=== PATIENT | female | born 1975 | race African-American/Black ===

== ENCOUNTER 2016-07-16 13:05 | Inpatient (IN) ==
[2016-07-16] MEDS ORDERED: MORPHINE 2 MG/1 ML SYRINGE IV STA (14:50)
[2016-07-16] MEDS ORDERED: MORPHINE 2 MG/1 ML SYRINGE ONE (15:11)
[2016-07-16 15:14] LABS: Basophils % 0.2 % (0.0-0.8); Eosinophils # 0.1 10*3/uL (0.0-0.87); Eosinophils % 1.1 % (0.00-10.9); Hematocrit 28.5 VOL% (35.7-47.0); Hemoglobin 8.2 GM/DL (12.0-16.0); Immature Granulocytes % 0.6 %; Immature Granulocytes Absolute 0.06 #; Lymphocytes # 1.7 10*3/uL (1.4-4.0); Lymphocytes % 15.8 % (21.3-54.2); Mean Corpuscular HGB Conc 28.8 GM/DL (32-36); Mean Corpuscular Hemoglobin 19 PG (27-34); Mean Corpuscular Volume 64.3 FL (87-102); Mean Platelet Volume 8.4 FL (9.6-12.0); Monocytes # 0.6 10*3/uL (0.11-0.8); Monocytes % 5.7 % (1.7-12.7); Neutrophils # 8.1 10*3/uL (1.4-7.4); Neutrophils % 76.6 % (38.7-73.9); Platelet Count 435 T/CUMM (130-400); Red Blood Count 4.43 MC/CUMM (3.8-5.5); Red Cell Distribution Width 20.5 % (9.3-17.3); White Blood Count 10.6 T/CUMM (4-12)
[2016-07-16] MEDS ORDERED: HYDROmorphone 2 MG/1 ML VIAL IV PRN (15:32)
[2016-07-16] MEDS ORDERED: GLUCAGON 1 MG VIAL IM PRN (15:32)
[2016-07-16] MEDS ORDERED: BISACODYL 5 MG TABLET PO PRN (15:32)
[2016-07-16] MEDS ORDERED: ONDANSETRON 4 MG/2 ML VIAL IV PRN (15:32)
[2016-07-16] MEDS ORDERED: DEXTROSE 50% 25 GM/50 ML VIAL IV PRN (15:32)
[2016-07-16] MEDS ORDERED: ALUMINUM/MAGNES/SIMETH MAX STR 30 ML UDCUP PO PRN (15:32)
[2016-07-16] MEDS ORDERED: ACETAMINOPHEN 325 MG TABLET PO PRN (15:32)
[2016-07-16 15:34] LABS: Calcium 8.8 MG/DL (8.5-10.1); Osmolality,Calculated 276.4 MOS/KG (273-304); Potassium 3.6 MMOL/L (3.5-5.1)
[2016-07-16] MEDS ORDERED: ceFAZolin 2,000 MG in PREMIX 1 EACH IV ONE (15:45)
[2016-07-16] MEDS ORDERED: ALBUTEROL 2.5 MG/3 ML NEB RESP TX PRN (15:45)
--- NOTE | 2016-07-16 15:51 | General Surg History&Physical ---
Assessment and Plan - Time spent with patient Time spent with patient: Less than 30 minutes (1) Breast abscess of female Status: Acute Assessment and plan: Impression: Right breast abscess recurrent Plan: Surgical debridement and drainage of abscess right breast IV fluids and IV antibiotics Current Visit: Yes History of Present Illness Chief complaint: Abscess right breast History of present illness: Ms. Akers is a 40 year old female -[place] who has had a history of the right breast abscess drained in 2014. Had some flares in the past but never required any additional drainage. Came into the emergency room on the with a new area developing that was tender. She is started on some p.o. antibiotics and sent out and then no appointment was made for her follow-up. She came in today with a larger abscess with cellulitis around the breast with a area beginning to point in the very center of the areola. We will plan on taken to surgery this afternoon but she had eaten at 1230 some coke and chips at this time. We will go ahead and admit her on some IV antibiotics and try to taken to surgery tomorrow get this drained. Home Medications Medication Instructions Recorded Confirmed Type Albuterol Inhaler [Proventil 2 puff INH Q4H PRN #1 inhaler 05/07/15 07/16/16 Rx Inhaler] amLODIPine [Norvasc] 10 mg PO QPM 05/01/16 07/16/16 History Clindamycin Cap [Cleocin Cap] 300 mg PO Q8HR #21 capsule 07/11/16 07/16/16 Rx Allergies Allergy/AdvReac Type Severity Reaction Status Date / Time No Known Allergies Allergy Verified 07/16/16 13:12 Medical,Surgical,& Family Hx - Medical History Cardio: History of: Hypertension Neurology: History of: Migraine Respiratory: History of: Asthma (childhood asthma), Bronchitis Hematology: History of: Anemia (etiology unknown. Has had to have transfusions in the past.) Reproductive: History of: Ovarian Cysts (left) - Surgical History Reproductive Surgeries: Surgical HX of;: Breast Surgery (2015 right), Hysterectomy - Family History Family History: Reports;: Family Hypertension - Social History Smoking Status: Smoker, status unknown Frequency of Alcohol Use: None Type of Drug Use: None Exam - Constitutional Vitals: Period Temp Pulse Resp BP Sys/Randle Pulse Ox Last 24 Hr 98.2 F-98.2 F 82-100 16-20 164-179/92-115 100 General appearance: mild distress - Head Head exam: Present: normal inspection - ENT ENT exam: Present: normal exam - Neck Neck exam: Present: normal inspection - Respiratory Respiratory exam: Present: clear to auscultation bilaterally, rales - Cardiovascular Cardiovascular exam: Present: RRR - GI/Abdominal GI/Abdominal exam: Present: normal bowel sounds, soft. Absent: tenderness - Extremities Exam Extremities exam: Present: normal inspection - Back Exam Back exam: Present: normal inspection - Neurological Exam Neurological exam: Present: alert, oriented X3, CN II-XII intact - Skin Skin exam: Present: normal color, warm, erythema (About the areola of the right breast), other (Large indurated area on the 12 o'clock position of the right breast with a raised pointing area in the middle of the areola) 12 point system: reviewed and no additional remarkable complaints except as stated Quality Measures - VTE Contraindication to Pharmacological VTE Prophylaxis: High Risk of Bleeding Results - Labs CBC & BMP: 07/16/16 15:03 07/16/16 15:03 Lab Results: I have reviewed the past 24 hour labs
--- NOTE | 2016-07-16 16:15 | Emergency Department Note ---
Temo Mena Brooke, am scribing for, and in the presence of, Helen Nielsen DO 14:56. IGia Whitney, DO, personally performed the services described in this documentation, ascribed by Tiffany Plascencia in my presence, and it is both accurate and complete 611 . Arrival - Arrival Chief Complaint: Abscess Stated Complaint: right breast has a knot ED Nursing Triage Note: c/o having abscess on the right breast since sun., states she was evaluated here and told to come back if not better, + temp with the highest being 101.0 last evening., states she feels the abscess has gotten bigger and more painful Mode of Arrival: Ambulatory Limitations: No Limitations Source: Patient, RN Notes Reviewed Time Seen by Provider: 07/16/16 14:26 - History of Present Illness HPI Narrative: Patient is a 40 year old female who presents to the ED with c/o abscess to right breast x 8 days. Patient says she had a previous breast abscess in 2010 that was surgically drained. She hasn't had trouble until last sunday, she saw a doctor but was told it was not "big enough" to I&D. Patient was given antibiotics(clindamycin) and was told to come back if the abscess did not get any better. She says the abscess is increasingly very painful and the redness around her breast is new. She reports it is bigger than previous and has been having fevers of 101. She denies any drainage to the abscess including the white head or nipple drainage. She says she was "bathing" and some of the skin come off. She denies having any abdominal pain or vomiting. Patient has PMHx of HTN and takes Norvasc 5mg. She has eaten some "chips" around 1200 today. Onset (ago): day(s) (8) Date of Last Menstrual Period: hyst Allergies/Adverse Reactions: Allergies Allergy/AdvReac Type Severity Reaction Status Date / Time No Known Allergies Allergy Verified 07/16/16 13:12 Home Medications: Home Medications Medication Instructions Recorded Confirmed Type Albuterol Inhaler [Proventil 2 puff INH Q4H PRN #1 inhaler 05/07/15 07/16/16 Rx Inhaler] amLODIPine [Norvasc] 10 mg PO QPM 05/01/16 07/16/16 History Clindamycin Cap [Cleocin Cap] 300 mg PO Q8HR #21 capsule 07/11/16 07/16/16 Rx Review of System - Review of System 12 point system: reviewed and no additional remarkable complaints except as stated - Review of System Constitutional: Present: fever Respiratory: Absent: respiratory distress Gastrointestinal: Absent: abdominal pain, vomiting Skin: Present: other (abscess right breast). Absent: rash Medical,Surgical,& Family Hx - Medical History Cardio: History of: Hypertension Neurology: History of: Migraine Respiratory: History of: Asthma (childhood asthma), Bronchitis Hematology: History of: Anemia (etiology unknown. Has had to have transfusions in the past.) Reproductive: History of: Ovarian Cysts (left) - Surgical History Reproductive Surgeries: Surgical HX of;: Breast Surgery (2015 right), Hysterectomy - Family History Family History: Reports;: Family Hypertension - Social History Smoking Status: Smoker, status unknown Frequency of Alcohol Use: None Type of Drug Use: None Exam Vital Signs: Vital Signs Temperature 98.2 F 07/16/16 13:40 Pulse Rate 82 07/16/16 15:05 Respiratory Rate 20 07/16/16 15:05 Blood Pressure 164/92 07/16/16 15:05 O2 Sat by Pulse Oximetry 100 07/16/16 13:07 - General General appearance: alert, in no apparent distress - Head Head exam: Present: atraumatic, normocephalic - Eye Eye exam: Present: normal appearance, PERRL, EOMI - ENT ENT exam: Present: normal exam - Neck Neck exam: Present: normal inspection - Chest Chest inspection: Present: normal inspection, symmetric chest wall rise - Respiratory Respiratory exam: Present: normal lung sounds bilaterally - Cardiovascular Cardiovascular exam: Present: regular rate, normal rhythm, normal heart sounds - Abdominal Exam Abdominal exam: Present: soft. Absent: distention, tenderness - Extremities Exam Extremities exam: Present: normal inspection - Back Exam Back exam: Present: normal inspection - Neurological Exam Neurological exam: Present: alert, oriented X3 - Psychiatric Psychiatric exam: Present: normal affect, normal mood - Skin Skin exam: Present: warm, dry, intact, other (3x5cm abscess to right breast that is sub-areolar that has induration and fluctuance with surrounding cellulitis) Course Course Narrative: very large worsening abscess of right breast with new cellulitis. Consulted general surgery for surgical washout. They will admit. labs obtained. pain medication given. - Consultations Consultation #1: DR. Hamm- general surgery Results - Labs CBC & BMP: 07/16/16 15:03 07/16/16 15:03 Lab Results: I have reviewed the patients labs Labs: Laboratory Tests 07/16/16 15:03 WBC 10.6 RBC 4.43 Hgb 8.2 L Hct 28.5 L MCV 64.3 L MCH 19 L MCHC 28.8 L RDW 20.5 H Plt Count 435 H MPV 8.4 L Neut % (Auto) 76.6 H Lymph % (Auto) 15.8 L [place] % (Auto) 5.7 Eos % (Auto) 1.1 Baso % (Auto) 0.2 Neut # (Auto) 8.1 H Lymph # (Auto) 1.7 [place] # (Auto) 0.6 Eos # (Auto) 0.1 Baso # (Auto) 0.0 Immature Gran % 0.6 Nucleated RBC % 0.0 Immature Gran # 0.06 Nucleated RBCs # 0.00 Disposition Clinical Impression: Breast abscess of female, Cellulitis of female breast Case discussed with: patient Disposition: Still a Patient Condition: Stable
--- NOTE | 2016-07-16 16:34 | XRay Report ---
Exam: XR chest 1V portable Indication: Preop breast abscess Comparison study: 05/01/2016 radiograph Findings: Cardiac silhouette is mildly enlarged, similar to prior. Mediastinal contours are similar to prior and within normal limits. There is no focal consolidation, pneumothorax or pleural effusion identified. Impression: No acute cardiopulmonary process. PROCEDURE INTERPRETED AT [facility] DEPARTMENT OF RADIOLOGY Final Report Signed by: Kaden Sparks
[2016-07-16] MEDS: INSULIN REGULAR 100 UNIT/ML SUBCUT SCH ×2 (17:26→20:41)
[2016-07-16] MEDS: metroNIDAZOLE INJ 500 MG in PREMIX 1 EACH IV SCH ×2 (17:34→23:35)
[2016-07-16] MEDS: SODIUM CHLORIDE 0.45% 1,000 ML IV SCH (17:34)
[2016-07-16] MEDS: PIPERACILLIN/TAZOBACTAM 3,375 MG in SODIUM CHLORIDE 0.9% 100 ML IV SCH (18:54)
[2016-07-16] MEDS: amLODIPine 5 MG TABLET PO SCH (18:56)
[2016-07-16] MEDS: DOCUSATE SODIUM 100 MG CAPSULE PO SCH (21:00)
[2016-07-17] MEDS: SODIUM CHLORIDE 0.45% 1,000 ML IV SCH ×3 (00:10→16:01)
[2016-07-17] MEDS: PIPERACILLIN/TAZOBACTAM 3,375 MG in SODIUM CHLORIDE 0.9% 100 ML IV SCH ×3 (02:15→17:45)
[2016-07-17 06:20] LABS: PT Patient Result 10.9 SECS; Partial Thromboplastin Time 28.5 SECS (0-40)
[2016-07-17 06:40] LABS: Alanine Aminotransferase 14 U/L (13-56); Albumin 3.1 G/DL (3.4-5.0); Alkaline Phosphatase 56 U/L (45-117); Aspartate Amino Transferase 8 U/L (0-37); Bilirubin,Total < 0.39 MG/DL (0.2-1.0); Blood Urea Nitrogen 9 MG/DL (7-18); Calcium 8.5 MG/DL (8.5-10.1); Glucose 92 MG/DL (74-106); Osmolality,Calculated 277.4 MOS/KG (273-304); Potassium 3.6 MMOL/L (3.5-5.1); Sodium 140 MMOL/L (136-145)
[2016-07-17 07:05] LABS: Basophils % 0.4 % (0.0-0.8); Eosinophils # 0.2 10*3/uL (0.0-0.87); Eosinophils % 1.4 % (0.00-10.9); Hematocrit 27.1 VOL% (35.7-47.0); Hemoglobin 7.8 GM/DL (12.0-16.0); Immature Granulocytes % 0.7 %; Immature Granulocytes Absolute 0.08 #; Lymphocytes # 2.6 10*3/uL (1.4-4.0); Lymphocytes % 23.1 % (21.3-54.2); Mean Corpuscular HGB Conc 28.8 GM/DL (32-36); Mean Corpuscular Hemoglobin 19 PG (27-34); Mean Corpuscular Volume 64.7 FL (87-102); Mean Platelet Volume 8.5 FL (9.6-12.0); Monocytes # 0.8 10*3/uL (0.11-0.8); Monocytes % 6.9 % (1.7-12.7); Neutrophils # 7.6 10*3/uL (1.4-7.4); Neutrophils % 67.5 % (38.7-73.9); Platelet Count 425 T/CUMM (130-400); Red Blood Count 4.19 MC/CUMM (3.8-5.5); Red Cell Distribution Width 20.5 % (9.3-17.3); White Blood Count 11.2 T/CUMM (4-12)
[2016-07-17 07:17] LABS: Hypochromasia 2+; Microcytosis 2+
[2016-07-17 07:18] LABS: Platelet Estimate Increased; Polychromasia Slight
[2016-07-17] MEDS: metroNIDAZOLE INJ 500 MG in PREMIX 1 EACH IV SCH ×2 (07:46→15:45)
[2016-07-17] MEDS: INSULIN REGULAR 100 UNIT/ML SUBCUT SCH ×4 (07:48→20:27)
--- NOTE | 2016-07-17 07:49 | EKG Report ---
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
[2016-07-17] MEDS ORDERED: ceFAZolin 2,000 MG in PREMIX 1 EACH IV ONE (08:00)
[2016-07-17] MEDS: PANTOPRAZOLE 40 MG TABLET PO SCH (08:06)
[2016-07-17] MEDS: DOCUSATE SODIUM 100 MG CAPSULE PO SCH ×2 (08:06→20:31)
[2016-07-17] MEDS ORDERED: BUPIVACAINE MPF 0.25% /EPI 30 ML VIAL ONE (08:45)
[2016-07-17] MEDS ORDERED: METHYLENE BLUE 10 ML VIAL IV ONE (09:00)
[2016-07-17] MEDS ORDERED: PROPOFOL 200 MG/20 ML VIAL IV ONE ×2 (09:03→10:30)
[2016-07-17] MEDS ORDERED: PHENYLEPHRINE 1 MG/10 ML SYRINGE IV ONE (09:03)
[2016-07-17] MEDS ORDERED: LIDOCAINE 2% 5 ML VIAL ONE (09:03)
--- NOTE | 2016-07-17 10:10 | Operative Note ---
Date of procedure: 07/17/16 Pre-op diagnosis: Recurrent abscess right breast Post-op diagnosis: same Procedure: Operative note: Preoperative diagnosis: Recurrent abscess of the right breast Postoperative diagnosis: Same Procedure: Mammary duct exploration with excisional debridement and drainage of abscess with lumpectomy of abscess cavity and ductal component Anesthesia was general with local Surgeon Dr. Hamm Brief history: 40-year-old -Turkish female comes in with a recurrent abscess of the right breast with a large ulcerated area on the areola just above the nipple. She was seen initially on the and put on some antibiotics did not think need to be drained at that time is gotten progressively worse to a large indurated mass of 7 cm x 7 cm about the areolar at this time. Elected to put her on some IV antibiotics bring her surgery at this time. Procedure: With patient in supine position prepped and draped in sterile fashion timeout and antibiotics completed approaches area of the right breast. Between the areolar border and the nipple was a ulcerated area about midway. I had considered possibility of trying to go around circumareolar to do this area but this abscess area that was ulcerated forced me to look at this as a spot for incision. I tried infiltrated with a local anesthetic ellipse this ulcerated area out entering the cavity with a large amount of purulent material present. Prior to this would take in the lacrimal probes and I entered to ducts and the nipple that entered the cavity itself. Once this thing was opened and the skin was removed and cultures of this aerobically and anaerobically were taken of the fluid that I had to extend this towards the nipple and then towards the areola border in order to get this where I could see what I was able to remove. There was a large necrotic ulcerated cavity in this area. I carefully explored this and carefully dissected out the duct from underneath the nipples where the lacrimal probes were. Once I dissected out then I took a knife and cautery and we excised the cavity that was present remove all the necrotic tissue in this area. This was some taken for culture and is most taken for pathology. Patient has not had a mammogram in couple years felt is important to get good biopsies of this area induced complete dissection of the necrotic cavity as much as I could. Once everything was completely removed and clean at this point that I washed irrigated with saline solution. And I used electrocauterization controlling the bleeding. I feel the need to keep this wound open at this time to get things under control so we have an open wound post debridement that is 3 x 2 x 2.5 cm. After irrigating again I packed this with a Dakin's wet fluff. Bulky dressings were applied and the patient was taken recovery room. Estimated blood loss 15 cc Sponge count correct 2 Drains none Complications none Condition stable satisfactory Anesthesia: GETA, local (0.25% Marcaine with epinephrine mixed [id number] 1% Xylocaine plain.) Surgeon / Physician: Aman Hamm Estimated blood loss: other (15 cc) Specimens: other (Tissue for pathology and cultures) Condition: stable Disposition: floor Results - Labs CBC & BMP: 07/17/16 04:55 07/17/16 04:55 Discharge Plan - Discharge Medications No Action Albuterol Inhaler [Proventil Inhaler] 2 puff INH Q4H PRN #1 inhaler PRN Reason: Shortness Of Breath/Wheezing amLODIPine [Norvasc] 10 mg PO QPM Clindamycin Cap [Cleocin Cap] 300 mg PO Q8HR #21 capsule - Follow Up or Referral - Forms/Instructions
[2016-07-17] MEDS ORDERED: CHLORHEXIDINE 4% SOLN 118 ML BOTTLE TOP ONE (10:15)
[2016-07-17] MEDS ORDERED: DESFLURANE 1 UNIT/15 MINUTE INH ONE (10:30)
[2016-07-17] MEDS ORDERED: MIDAZOLAM 2 MG/2 ML VIAL ONE (10:30)
[2016-07-17] MEDS ORDERED: fentaNYL 100 MCG/2 ML VIAL ONE (10:30)
--- NOTE | 2016-07-17 15:13 | Anesthesia Post-Op ---
Anesthesia Post OP - Post Ansesthetic Evaluation Patient seen in post op: Yes Resp: within normal limits CV: within normal limits Mental: within normal limits Temp: within normal limits [id number]: within normal limits Nausea and Vomiting: within normal limits Pain: within normal limits
[2016-07-17] MEDS: ceFAZolin 2,000 MG in PREMIX 1 EACH IV SCH (15:15)
[2016-07-17] MEDS: amLODIPine 5 MG TABLET PO SCH (18:13)
[2016-07-18] MEDS: ceFAZolin 2,000 MG in PREMIX 1 EACH IV SCH (00:05)
[2016-07-18] MEDS: SODIUM CHLORIDE 0.45% 1,000 ML IV SCH ×2 (00:38→09:03)
[2016-07-18] MEDS: metroNIDAZOLE INJ 500 MG in PREMIX 1 EACH IV SCH ×2 (00:38→08:57)
[2016-07-18] MEDS: PIPERACILLIN/TAZOBACTAM 3,375 MG in SODIUM CHLORIDE 0.9% 100 ML IV SCH ×2 (02:46→09:53)
[2016-07-18 06:30] LABS: Basophils % 0.3 % (0.0-0.8); Eosinophils # 0.1 10*3/uL (0.0-0.87); Eosinophils % 1.1 % (0.00-10.9); Hematocrit 27.8 VOL% (35.7-47.0); Hemoglobin 7.9 GM/DL (12.0-16.0); Immature Granulocytes % 0.3 %; Immature Granulocytes Absolute 0.03 #; Lymphocytes # 1.6 10*3/uL (1.4-4.0); Lymphocytes % 15.8 % (21.3-54.2); Mean Corpuscular HGB Conc 28.4 GM/DL (32-36); Mean Corpuscular Hemoglobin 18 PG (27-34); Mean Corpuscular Volume 64.1 FL (87-102); Mean Platelet Volume 8.6 FL (9.6-12.0); Monocytes # 0.6 10*3/uL (0.11-0.8); Monocytes % 6.1 % (1.7-12.7); Neutrophils % 76.4 % (38.7-73.9); Platelet Count 317 T/CUMM (130-400); Red Blood Count 4.34 MC/CUMM (3.8-5.5); Red Cell Distribution Width 20.2 % (9.3-17.3); White Blood Count 10.4 T/CUMM (4-12)
[2016-07-18 06:32] LABS: Calcium 9.1 MG/DL (8.5-10.1); Osmolality,Calculated 277.3 MOS/KG (273-304); Potassium 3.7 MMOL/L (3.5-5.1)
[2016-07-18 06:44] LABS: Hypochromasia 2+; Microcytosis 2+; Ovalocytes Slight; Platelet Estimate Normal; Target Cells Few
[2016-07-18 06:45] LABS: Polychromasia Slight
[2016-07-18] MEDS ORDERED: ENOXAPARIN 40 MG/0.4 ML SYRINGE SUBCUT SCH (08:00)
[2016-07-18] MEDS: INSULIN REGULAR 100 UNIT/ML SUBCUT SCH (08:13)
[2016-07-18] MEDS: DOCUSATE SODIUM 100 MG CAPSULE PO SCH (08:57)
[2016-07-18] MEDS: PANTOPRAZOLE 40 MG TABLET PO SCH (08:57)
--- NOTE | 2016-07-18 08:58 | Discharge Summary ---
Hospital Course - Hospital Course Hospital Course: 07/18/2016. Discharge summary This 40-year-old black female was admitted through the emergency room after reportedly 3-4 day history of increasing right wrist pain. This was associated with the mass, and she had a past medical history of prior right breast abscess. She had previously seen an outpatient position, who told her the area was "not large enough to drain." She was placed on antibiotics, and came to the emergency room when she developed fever up to 101, increased pain, and enlarging of the right breast mass. Dr. Maldonado was consulted, and felt the area did need I&D at this point. She was admitted, placed on IV antibiotics, and on 07/17/2016, she was taken to the operating room where incision and drainage of a large right breast abscess was performed. The area did extend subareolar and the entire affected duct was excised. Postoperatively she did quite well, with a moderate amount of pain and also complained of a postop headache although she denied nausea and vomiting. This morning however she is able to tolerate a regular diet, her headache has subsided, and she is only having a minimal amount of discomfort. The dressing changes not formally been performed, however the wound is clean and dry without active drainage. Gram stain at this point is negative for any visible organisms. There is minimal induration and no active bleeding. The patient has had prior abscesses drained in this area, and feels comfortable that she can manage the wound at home. She would like to be discharged home, so we will plan to discharge her at this time. We will cover her empirically on short course of Augmentin until the final cultures are available, we will add tramadol every 6 hours as needed for pain, and be sure that the wound care can be managed and tolerated by her before she is discharged. We will plan to continue all her previous home medications and follow her up in our office in 1-2 weeks unless there are problems sooner. Diagnosis - Discharge Diagnosis (1) Breast abscess of female Status: Acute Specialty Discharge - Follow Up or Referrals Follow up with: Aman Hmam MD [Physician] - 07/24/16 9:00 am (1-2 weeks with either Rose or Dr. Hamm; please bring insurance cards, medicine and photo id to your appointment) Discharge Plan - Discharge Data Disposition: Disch To Home/Self Care Condition at Discharge: Stable Discharge Diet: advance to your usual diet Activity: increase activity as tolerated Hygiene: may shower Weight Bearing at Discharge: full weight bearing Driving: no restrictions Contact your physician if you experience:: fever over 101, Redness or swelling, Nausea/Vomiting, Shortness of breath, Bleeding, pain uncontrolled by pain medications - Discharge Medications New Chlorhexidine 4% Soln [Hibiclens] 1 applic TOP BID #118 ml Sodium Hypochlorite 0.25% Irr [Dakins 1/2 Strength 0.25% Soln] 1 bottle TOP BID #1 ml Tramadol HCl [Tramadol Tab] 50 mg PO Q6H PRN #20 tablet PRN Reason: Pain Moderate To Severe (4-10) Amoxicillin/Clav Tab [Augmentin Tab] 500 mg PO Q8H #21 tablet Continue Albuterol Inhaler [Proventil Inhaler] 2 puff INH Q4H PRN #1 inhaler PRN Reason: Shortness Of Breath/Wheezing amLODIPine [Norvasc] 10 mg PO QPM Discontinued Clindamycin Cap [Cleocin Cap] 300 mg PO Q8HR #21 capsule - Follow Up or Referral Follow Up: Aman Hamm MD [Physician] - - Forms/Instructions Instructions: Breast Abscess Drainage (DC), Cellulitis (DC) Exam - Constitutional Vitals: Period Temp Pulse Resp BP Sys/Randle Pulse Ox Last 24 Hr 97 F-98.1 F 87-97 16-24 124-193/69-101 92-100 General appearance: no acute distress, morbidly obese - Respiratory Respiratory exam: Present: clear to auscultation bilaterally - Cardiovascular Cardiovascular exam: Present: regular rate and rhythm - GI/Abdominal GI/Abdominal exam: Present: hypoactive bowel sounds, soft - Extremities Exam Extremities exam: Present: normal inspection - Skin Skin exam: Present: other (Right breast with resolving erythema about the incision. There is very minimal induration. There is no active drainage or bleeding noted. She is appropriately tender postop.) Discharge Results Procedures and tests throughout hospitalization: Pending Orders 07/17/16 09:44 Anaerobic Culture Routine Wound Culture Routine 07/17/16 09:48 Tissue (Biopsy) Culture and GS Routine Labs on day of discharge: Labs from last 24 hours 07/18/16 07/18/16 07/18/16 07:04 05:44 05:44 WBC 10.4 RBC 4.34 Hgb 7.9 L Hct 27.8 L MCV 64.1 L MCH 18 L MCHC 28.4 L RDW 20.2 H Plt Count 317 D MPV 8.6 L Neut % (Auto) 76.4 H Lymph % (Auto) 15.8 L Stewart % (Auto) 6.1 Eos % (Auto) 1.1 Baso % (Auto) 0.3 Neut # (Auto) 8.0 H Lymph # (Auto) 1.6 Stewart # (Auto) 0.6 Eos # (Auto) 0.1 Baso # (Auto) 0.0 Immature Gran % 0.3 Nucleated RBC % 0.0 Immature Gran # 0.03 Nucleated RBCs # 0.00 Platelet Estimate Normal Polychromasia Slight Hypochromasia 2+ Microcytosis 2+ Target Cells Few Ovalocytes Slight Sodium 141 Potassium 3.7 Chloride 104 Carbon Dioxide 27 Anion Gap 13.7 BUN 4 L Creatinine 0.60 GFR Calculation 188 BUN/Creatinine Ratio 6.00 Glucose 104 POC Glucose 121 H Calculated Osmolality 277.3 Calcium 9.1 07/17/16 07/17/16 07/17/16 20:03 15:25 11:23 WBC RBC Hgb Hct MCV MCH MCHC RDW Plt Count MPV Neut % (Auto) Lymph % (Auto) Stewart % (Auto) Eos % (Auto) Baso % (Auto) Neut # (Auto) Lymph # (Auto) Stewart # (Auto) Eos # (Auto) Baso # (Auto) Immature Gran % Nucleated RBC % Immature Gran # Nucleated RBCs # Platelet Estimate Polychromasia Hypochromasia Microcytosis Target Cells Ovalocytes Sodium Potassium Chloride Carbon Dioxide Anion Gap BUN Creatinine GFR Calculation BUN/Creatinine Ratio Glucose POC Glucose 122 H 105 161 H Calculated Osmolality Calcium DS: Provider Date of admission: 07/16/16 15:32 Primary care physician: . No PCP Attending physician on admission: Aman Hamm MD Consults: 07/16/16 15:47 Consult to Anesthesiology [CONS] Routine Consulting Provider: Reason for Anesthesiology: Pre-op Clearance 07/17/16 10:18 Consult to Wound Care - [place] [CONS] Routine Reason for Wound Care: Wound Care Management Consult Comment: right breast wound/teach family Discharging clinician: Rose Patel CNP, R
[2016-07-18] MEDS ORDERED: SODIUM HYPOCHLORITE 0.25% IRRIG 473 ML BOTTLE TOP SCH (09:00)
[2016-07-18 11:33] VITALS: BP 164/83
--- NOTE | 2016-07-18 13:21 | Pathology Report from [facility] ---
[facility] ACCESSION # : [id number] PATIENT NAME : Bobbi Akers ORDERING DR : CALEB HESTER MD CLINICAL HX: RT breast abscess POST-OP DX: Same SPECIMEN INFO: RT breast tissue GROSS DESCRIPTION: Received in formalin labeled BOBBI AKERS & R BREAST TISSUE are five fragments of yellow pink debrided subcutaneous tissue and overlying dark rubin skin measuring 3.3 x 2.2 cm. Felt Hooker sections are submitted in one cassette. NOTE: Time in formalin is 10:15 a.m. and time out of formalin is 6:00 p.m. on July 17. DIAGNOSIS FOR BOBBI AKERS: SKIN & SUBCUTANEOUS TISSUE OF RIGHT BREAST, DEBRIDEMENT: Reactive skin with abscess contents and marked acute and chronic cellulitis. COLLECTED DATE: 07/17/2016 [facility] REPORT DATE: 07/18/2016 ELECTRONICALLY SIGNED BY: Montrell Mahmood M.D. 07/18/2016 - 10:18:15 MTDD
--- NOTE | 2016-07-21 08:15 | Physician Query Form ---
CLICK EDIT DOCUMENT TO SELECT QUERY ANSWER --> OK --> SIGN Anette Patel RN, CCDS Certified Clinical Active Directory Administrator W) [phone] (f) [phone] [email or web address] PROVIDERS: Make your selection(s) from the choices in EACH section by typing an "x" and enter comments in the comment section. Please use your independent medical judgment in providing your response. This request does not imply that any particular answer is desired or expected. 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 If applicable, please provide an associated diagnosis related to the abnormal BMI: BMI of 40 or greater: ( ) Overweight ( ) Obesity (x ) Morbid//Severe Obesity ( ) Obesity with Alveolar Hypoventilation ( ) Weight Gain ( ) BMI is not significant ( ) Other, please specify: ( ) Clinically unable to determine COMMENTS: PLEASE ALSO DOCUMENT RESPONSE IN PROGRESS NOTES AND/OR DISCHARGE SUMMARY Use of terms such as suspected, likely, or probable (associated with a specific diagnosis that is being evaluated, monitored, or treated as if it exists) are acceptable and can be restated in the discharge summary if not ruled out. MTDD
== END 2016-07-18 11:40 | disposition home or self-care (01) | DRG 584 ==
LOC: N.ED 13:05 → N.EDINP 15:32 → N.3E 16:43
PROVIDERS: ADMIT Specialist; ATTEND Specialist

== ENCOUNTER 2017-07-18 15:03 | Observation (INO) ==
[2017-07-18] MEDS ORDERED: MORPHINE 4 MG/1 ML VIAL IV STA (16:40)
[2017-07-18] MEDS ORDERED: ONDANSETRON 4 MG/2 ML VIAL IV STA (16:40)
[2017-07-18] MEDS ORDERED: ASPIRIN 325 MG TABLET PO STA (16:40)
[2017-07-18] MEDS ORDERED: NITROGLYCERIN 2% OINT 1 INCH/GM PACK TOP STA (16:40)
[2017-07-18] MEDS ORDERED: FUROSEMIDE 40 MG/4 ML VIAL IV STA (16:42)
[2017-07-18 16:59] LABS: Basophils % 0.2 % (0.0-0.8); Eosinophils # 0.1 10*3/uL (0.0-0.87); Eosinophils % 0.5 % (0.00-10.9); Hemoglobin 7.8 GM/DL (12.0-16.0); Immature Granulocytes % 0.3 %; Immature Granulocytes Absolute 0.03 #; Lymphocytes # 1.7 10*3/uL (1.4-4.0); Mean Corpuscular HGB Conc 27.9 GM/DL (32-36); Mean Corpuscular Hemoglobin 18 PG (27-34); Mean Corpuscular Volume 64.1 FL (87-102); Mean Platelet Volume 8.9 FL (9.6-12.0); Monocytes # 0.5 10*3/uL (0.11-0.8); Monocytes % 4.6 % (1.7-12.7); Neutrophils # 7.8 10*3/uL (1.4-7.4); Neutrophils % 77.4 % (38.7-73.9); Platelet Count 461 T/CUMM (130-400); Red Blood Count 4.37 MC/CUMM (3.8-5.5); Red Cell Distribution Width 22.4 % (9.3-17.3); White Blood Count 10.1 T/CUMM (4-12)
[2017-07-18 17:00] LABS: Calcium 8.7 MG/DL (8.5-10.1); Osmolality,Calculated 275.5 MOS/KG (273-304)
[2017-07-18 17:08] LABS: PT Patient Result 10.5 SECS
[2017-07-18 17:13] LABS: Alanine Aminotransferase 13 U/L (13-56); Albumin 3.2 G/DL (3.4-5.0); Alkaline Phosphatase 48 U/L (45-117); Aspartate Amino Transferase 12 U/L (0-37); Bilirubin,Total < 0.39 MG/DL (0.2-1.0); Blood Urea Nitrogen 10 MG/DL (7-18); Calcium 8.5 MG/DL (8.5-10.1); Glucose 90 MG/DL (74-106); Osmolality,Calculated 275.5 MOS/KG (273-304); Sodium 139 MMOL/L (136-145); Total Protein 7.2 G/DL (6.4-8.3)
[2017-07-18] MEDS ORDERED: ONDANSETRON 4 MG/2 ML VIAL IV PRN (18:10)
[2017-07-18] MEDS: amLODIPine 10 MG TABLET PO SCH (22:27)
[2017-07-19] MEDS ORDERED: MORPHINE 4 MG/1 ML VIAL IV PRN (05:09)
[2017-07-19 05:59] LABS: Basophils % 0.2 % (0.0-0.8); Eosinophils # 0.1 10*3/uL (0.0-0.87); Eosinophils % 1.2 % (0.00-10.9); Immature Granulocytes % 0.4 %; Immature Granulocytes Absolute 0.04 #; Lymphocytes % 20.2 % (21.3-54.2); Mean Corpuscular Hemoglobin 18 PG (27-34); Monocytes # 0.7 10*3/uL (0.11-0.8); Monocytes % 6.9 % (1.7-12.7); Neutrophils # 6.9 10*3/uL (1.4-7.4); Neutrophils % 71.1 % (38.7-73.9)
[2017-07-19 06:17] LABS: Calcium 8.3 MG/DL (8.5-10.1); Osmolality,Calculated 278.4 MOS/KG (273-304); Potassium 3.7 MMOL/L (3.5-5.1); Thyroid Stimulating Hormone 2.14 uIU/ml (0.358-3.74)
[2017-07-19] MEDS ORDERED: POTASSIUM CHLORIDE 20 MEQ TABLET PO PRN (06:24)
[2017-07-19 06:29] LABS: Hypochromasia 1+; Platelet Estimate Adequate
[2017-07-19 07:07] LABS: Sedimentation Rate-Westergren 32 MM/HR (0-20)
[2017-07-19 07:48] LABS: Folate 10.4 NG/ML (5.4-24.0); Vitamin B12 494 PG/ML (211-911)
[2017-07-19] MEDS: PANTOPRAZOLE 40 MG TABLET PO SCH (09:23)
[2017-07-19 09:54] LABS: Hemoglobin A1 (Alkaline) 97.2 % (96.5-98.5); Hemoglobin A2 (Alkaline) 2.8 % (1.5-3.5)
[2017-07-19 10:52] LABS: Hemoglobin 7.9 GM/DL (12.0-16.0); Red Blood Count 4.43 MC/CUMM (3.8-5.5); White Blood Count 9.1 T/CUMM (4-12)
[2017-07-19 10:53] LABS: Hematocrit 28.9 VOL% (35.7-47.0); Mean Corpuscular HGB Conc 27.3 GM/DL (32-36); Mean Corpuscular Volume 65.2 FL (87-102); Mean Platelet Volume 8.3 FL (9.6-12.0); Platelet Count 451 T/CUMM (130-400); Red Cell Distribution Width 22.7 % (9.3-17.3)
[2017-07-19 10:55] LABS: Apearance,Urine CLEAR (Clear); Bilirubin,Urine Negative (Negative); Blood, Urine Negative (Negative); Glucose,Urine (UA) Negative (Negative); Ketones,Urine Negative (Negative); Mucus,Urine Moderate /LPF (Occasional); Nitrite,Urine Negative (Negative); Protein,Urine Negative; RBC,Urine 3 /HPF (0-4); Squamous Epithelial Cell,Urine Occasional /HPF (0-10); Urine Color Yellow (Yellow); Urine Specific Gravity 1.021 (1.001-1.035); Urine Urobilinogen < 2.0 EU/DL (0.2-1.0)
[2017-07-19] MEDS ORDERED: SODIUM CHLORIDE 0.9% 1,000 ML IV PRN (11:25)
[2017-07-19] MEDS ORDERED: FUROSEMIDE 40 MG/4 ML VIAL IV ONE (11:25)
[2017-07-19] MEDS ORDERED: hydrALAZINE 20 MG/1 ML VIAL IV PRN (12:48)
[2017-07-19] MEDS: amLODIPine 10 MG TABLET PO SCH (20:40)
[2017-07-19 21:58] LABS: Hematocrit 30.8 VOL% (35.7-47.0); Hemoglobin 9.1 GM/DL (12.0-16.0)
[2017-07-20] MEDS ORDERED: ACETAMINOPHEN 325 MG TABLET ONE (01:04)
[2017-07-20] MEDS ORDERED: ACETAMINOPHEN 325 MG TABLET PO PRN (01:05)
[2017-07-20 05:08] LABS: Basophils % 0.3 % (0.0-0.8); Eosinophils # 0.1 10*3/uL (0.0-0.87); Eosinophils % 1.4 % (0.00-10.9); Hematocrit 32.5 VOL% (35.7-47.0); Hemoglobin 9.5 GM/DL (12.0-16.0); Immature Granulocytes % 0.3 %; Immature Granulocytes Absolute 0.03 #; Lymphocytes # 2.4 10*3/uL (1.4-4.0); Lymphocytes % 23.7 % (21.3-54.2); Mean Corpuscular HGB Conc 29.2 GM/DL (32-36); Mean Corpuscular Hemoglobin 19 PG (27-34); Mean Corpuscular Volume 66.2 FL (87-102); Mean Platelet Volume 8.6 FL (9.6-12.0); Monocytes # 0.8 10*3/uL (0.11-0.8); Monocytes % 7.6 % (1.7-12.7); Neutrophils # 6.6 10*3/uL (1.4-7.4); Neutrophils % 66.7 % (38.7-73.9); Platelet Count 464 T/CUMM (130-400); Red Blood Count 4.91 MC/CUMM (3.8-5.5); Red Cell Distribution Width 24.2 % (9.3-17.3); White Blood Count 9.9 T/CUMM (4-12)
[2017-07-20 05:28] LABS: Calcium 8.4 MG/DL (8.5-10.1); Osmolality,Calculated 273.7 MOS/KG (273-304); Potassium 3.6 MMOL/L (3.5-5.1)
[2017-07-20] MEDS: PANTOPRAZOLE 40 MG TABLET PO SCH (09:27)
[2017-07-20] MEDS ORDERED: LIDOCAINE 2% 5 ML VIAL ONE (11:17)
[2017-07-20] MEDS ORDERED: PROPOFOL 200 MG/20 ML VIAL IV ONE (11:17)
[2017-07-20] MEDS ORDERED: SUMAtriptan 6 MG/0.5 ML VIAL SUBCUT ONE (14:44)
[2017-07-20] MEDS ORDERED: TOPIRAMATE 25 MG TABLET PO SCH (15:00)
[2017-07-20 16:12] VITALS: BP 169/95
== END 2017-07-20 15:57 | disposition home or self-care (01) ==
LOC: N.ED 15:03 → N.EDINP 15:03 → SUATTDRO 17:13 → N.TELEN 21:19
PROVIDERS: ADMIT Internal Medicine; ATTEND Internal Medicine

== ENCOUNTER 2017-10-10 13:59 | Observation (INO) ==
[2017-10-10 16:35] LABS: Basophils % 0.3 % (0.0-0.8)
[2017-10-10 16:49] LABS: Calcium 8.4 MG/DL (8.5-10.1); Osmolality,Calculated 280.3 MOS/KG (273-304); Potassium 3.6 MMOL/L (3.5-5.1)
[2017-10-10 16:55] LABS: Eosinophils # 0.2 10*3/uL (0.0-0.87); Eosinophils % 1.7 % (0.00-10.9); Hematocrit 33.3 VOL% (35.7-47.0); Hemoglobin 9.2 GM/DL (12.0-16.0); Immature Granulocytes % 0.4 %; Immature Granulocytes Absolute 0.04 #; Lymphocytes # 2.2 10*3/uL (1.4-4.0); Lymphocytes % 20.5 % (21.3-54.2); Mean Corpuscular HGB Conc 27.6 GM/DL (32-36); Mean Corpuscular Hemoglobin 20 PG (27-34); Mean Platelet Volume 9.1 FL (9.6-12.0); Monocytes # 0.6 10*3/uL (0.11-0.8); Monocytes % 5.6 % (1.7-12.7); Neutrophils # 7.7 10*3/uL (1.4-7.4); Neutrophils % 71.5 % (38.7-73.9); Platelet Count 418 T/CUMM (130-400); Red Blood Count 4.69 MC/CUMM (3.8-5.5); Red Cell Distribution Width 21.1 % (9.3-17.3); White Blood Count 10.8 T/CUMM (4-12)
[2017-10-10 17:10] LABS: Hypochromasia 1+; Target Cells Few
[2017-10-10 17:11] LABS: Anisocytosis Slight; Platelet Estimate Adequate
[2017-10-10] MEDS ORDERED: ORPHENADRINE 60 MG/2 ML VIAL IV STA (17:19)
[2017-10-10] MEDS ORDERED: KETOROLAC 30 MG/1 ML VIAL IV STA (17:20)
[2017-10-10] MEDS ORDERED: DICLOFENAC POTASSIUM 50 MG TABLET PO PRN (19:19)
[2017-10-10] MEDS ORDERED: diphenhydrAMINE CAP 25 MG CAPSULE PO PRN (19:45)
[2017-10-10] MEDS ORDERED: traZODone 50 MG TABLET PO PRN (19:45)
[2017-10-10 20:31] LABS: Risk Ratio 2.22; T4 (Thyroxine) 7.1 UG/DL (4.7-13.3); Thyroid Stimulating Hormone 1.93 uIU/ml (0.358-3.74); VLDL CHOLESTEROL 8.2 MG/DL
[2017-10-11] MEDS: amLODIPine 10 MG TABLET PO SCH ×2 (00:28→20:35)
[2017-10-11] MEDS: HEPARIN 5,000 UNIT/1 ML VIAL SUBCUT SCH ×3 (00:28→20:34)
[2017-10-11] MEDS: DOCUSATE SODIUM 100 MG CAPSULE PO SCH ×3 (00:29→20:35)
[2017-10-11] MEDS: FLUTICASONE 50 MCG NASAL SPRAY 16 GM BOTTLE BOTH NARES SCH ×2 (00:29→20:37)
[2017-10-11 04:42] LABS: Basophils % 0.3 % (0.0-0.8); Eosinophils # 0.2 10*3/uL (0.0-0.87); Eosinophils % 1.6 % (0.00-10.9); Hemoglobin 8.7 GM/DL (12.0-16.0); Immature Granulocytes % 0.3 %; Immature Granulocytes Absolute 0.04 #; Lymphocytes # 2.9 10*3/uL (1.4-4.0); Lymphocytes % 22.9 % (21.3-54.2); Mean Corpuscular HGB Conc 28.1 GM/DL (32-36); Mean Corpuscular Hemoglobin 20 PG (27-34); Mean Corpuscular Volume 70.8 FL (87-102); Mean Platelet Volume 9.2 FL (9.6-12.0); Monocytes # 0.8 10*3/uL (0.11-0.8); Monocytes % 6.1 % (1.7-12.7); Neutrophils # 8.6 10*3/uL (1.4-7.4); Neutrophils % 68.8 % (38.7-73.9); Platelet Count 312 T/CUMM (130-400); Red Blood Count 4.38 MC/CUMM (3.8-5.5); Red Cell Distribution Width 20.9 % (9.3-17.3); White Blood Count 12.6 T/CUMM (4-12)
[2017-10-11 04:53] LABS: Hypochromasia 1+; Platelet Estimate Adequate
[2017-10-11 05:03] LABS: Albumin 3.1 G/DL (3.4-5.0); Bilirubin,Total 0.5 MG/DL (0.2-1.0); Calcium 8.5 MG/DL (8.5-10.1); Osmolality,Calculated 281.3 MOS/KG (273-304); Potassium 3.5 MMOL/L (3.5-5.1); Total Protein 7.4 G/DL (6.4-8.3)
[2017-10-11] MEDS: LISINOPRIL 10 MG TABLET PO SCH (11:56)
[2017-10-11] MEDS: ASPIRIN EC 81 MG TABLET PO SCH (11:56)
[2017-10-11] MEDS: PANTOPRAZOLE 40 MG TABLET PO SCH (11:56)
[2017-10-11] MEDS: SUMAtriptan 25 MG TABLET PO PRN ×2 (12:17→17:24)
[2017-10-11] MEDS ORDERED: PROCHLORPERAZINE 10 MG TABLET PO PRN (15:36)
[2017-10-11] MEDS ORDERED: cloNIDine 0.1 MG TABLET PO PRN (15:57)
[2017-10-11] MEDS: METOPROLOL TARTRATE 25 MG TABLET PO SCH ×2 (17:24→20:35)
[2017-10-11] MEDS: TOPIRAMATE 25 MG TABLET PO SCH (20:35)
[2017-10-11] MEDS: SODIUM CHLORIDE 0.9% 1,000 ML IV SCH (20:35)
[2017-10-12] MEDS: HEPARIN 5,000 UNIT/1 ML VIAL SUBCUT SCH ×3 (05:25→20:45)
[2017-10-12 06:10] LABS: Calcium 8.4 MG/DL (8.5-10.1); Osmolality,Calculated 274.7 MOS/KG (273-304); Potassium 3.4 MMOL/L (3.5-5.1)
[2017-10-12 06:14] LABS: Basophils % 0.3 % (0.0-0.8); Eosinophils # 0.1 10*3/uL (0.0-0.87); Eosinophils % 1.1 % (0.00-10.9); Hematocrit 32.2 VOL% (35.7-47.0); Hemoglobin 9.1 GM/DL (12.0-16.0); Immature Granulocytes % 0.3 %; Immature Granulocytes Absolute 0.03 #; Lymphocytes # 1.9 10*3/uL (1.4-4.0); Mean Corpuscular HGB Conc 28.3 GM/DL (32-36); Mean Corpuscular Hemoglobin 20 PG (27-34); Mean Corpuscular Volume 69.2 FL (87-102); Mean Platelet Volume 8.5 FL (9.6-12.0); Monocytes # 0.6 10*3/uL (0.11-0.8); Monocytes % 6.9 % (1.7-12.7); Neutrophils # 6.6 10*3/uL (1.4-7.4); Neutrophils % 71.4 % (38.7-73.9); Platelet Count 457 T/CUMM (130-400); Red Blood Count 4.65 MC/CUMM (3.8-5.5); Red Cell Distribution Width 20.7 % (9.3-17.3); White Blood Count 9.3 T/CUMM (4-12)
[2017-10-12 06:48] LABS: Hypochromasia 2+
[2017-10-12 06:49] LABS: Microcytosis 1+; Ovalocytes Slight; Target Cells Few
[2017-10-12 06:50] LABS: Platelet Estimate Increased; Polychromasia Slight
[2017-10-12] MEDS: LISINOPRIL 10 MG TABLET PO SCH ×2 (08:51→09:31)
[2017-10-12] MEDS: DOCUSATE SODIUM 100 MG CAPSULE PO SCH ×2 (08:51→20:46)
[2017-10-12] MEDS: METOPROLOL TARTRATE 25 MG TABLET PO SCH (08:52)
[2017-10-12] MEDS: ASPIRIN EC 81 MG TABLET PO SCH (08:52)
[2017-10-12] MEDS: TOPIRAMATE 25 MG TABLET PO SCH (08:52)
[2017-10-12] MEDS: PANTOPRAZOLE 40 MG TABLET PO SCH (08:52)
[2017-10-12] MEDS: SODIUM CHLORIDE 0.9% 1,000 ML IV SCH ×2 (09:30→20:46)
[2017-10-12] MEDS ORDERED: POTASSIUM CHLORIDE 20 MEQ TABLET PO ONE (11:35)
[2017-10-12] MEDS: ONDANSETRON 4 MG/2 ML VIAL IV PRN (14:33)
[2017-10-12] MEDS ORDERED: ZIPRASIDONE 20 MG/1 ML VIAL IM ONE (15:58)
[2017-10-12] MEDS: FLUTICASONE 50 MCG NASAL SPRAY 16 GM BOTTLE BOTH NARES SCH (20:49)
[2017-10-13] MEDS: HEPARIN 5,000 UNIT/1 ML VIAL SUBCUT SCH ×3 (05:26→21:25)
[2017-10-13 06:48] LABS: Calcium 8.8 MG/DL (8.5-10.1); Osmolality,Calculated 279.4 MOS/KG (273-304); Potassium 3.7 MMOL/L (3.5-5.1)
[2017-10-13] MEDS: ONDANSETRON 4 MG/2 ML VIAL IV PRN (08:18)
[2017-10-13] MEDS: LISINOPRIL 10 MG TABLET PO SCH (09:36)
[2017-10-13] MEDS: ASPIRIN EC 81 MG TABLET PO SCH (09:36)
[2017-10-13] MEDS: DOCUSATE SODIUM 100 MG CAPSULE PO SCH ×2 (09:36→21:27)
[2017-10-13] MEDS: PANTOPRAZOLE 40 MG TABLET PO SCH (09:36)
[2017-10-13] MEDS: BUTALBITAL/ACETAMIN/CAFFEINE 50-325-40 MG TABLET PO PRN ×2 (11:42→17:26)
[2017-10-13] MEDS: SODIUM CHLORIDE 0.9% 1,000 ML IV SCH ×2 (11:47→22:21)
[2017-10-13] MEDS ORDERED: AMITRIPTYLINE 25 MG TABLET PO SCH (21:00)
[2017-10-13] MEDS: FLUTICASONE 50 MCG NASAL SPRAY 16 GM BOTTLE BOTH NARES SCH (21:33)
[2017-10-14] MEDS: HEPARIN 5,000 UNIT/1 ML VIAL SUBCUT SCH ×2 (05:02→11:14)
[2017-10-14 07:27] VITALS: BP 131/67
[2017-10-14] MEDS: LISINOPRIL 10 MG TABLET PO SCH (08:40)
[2017-10-14] MEDS: DOCUSATE SODIUM 100 MG CAPSULE PO SCH (08:40)
[2017-10-14] MEDS: ASPIRIN EC 81 MG TABLET PO SCH (08:40)
[2017-10-14] MEDS: PANTOPRAZOLE 40 MG TABLET PO SCH (08:40)
[2017-10-14] MEDS: SODIUM CHLORIDE 0.9% 1,000 ML IV SCH (09:48)
[2017-10-14] MEDS: BUTALBITAL/ACETAMIN/CAFFEINE 50-325-40 MG TABLET PO PRN (10:56)
== END 2017-10-14 12:48 | disposition home or self-care (01) ==
LOC: N.EDINP 13:59 → N.ED 13:59 → SUATTDRO 21:54 → N.TELEN 23:07
PROVIDERS: ADMIT Internal Medicine; ATTEND Internal Medicine

== ENCOUNTER 2020-01-23 15:52 | Inpatient (IN) ==
[2020-01-23 16:46] LABS: Basophils # 0.1 10*3/uL (0.0-0.2); Basophils % 0.2 % (0.0-0.8); Eosinophils % 0.1 % (0.00-10.9); Hematocrit 28.5 VOL% (35.7-47.0); Hemoglobin 7.7 GM/DL (12.0-16.0); Immature Granulocytes % 0.8 %; Immature Granulocytes Absolute 0.17 #; Lymphocytes % 4.9 % (21.3-54.2); Mean Platelet Volume 8.6 FL (9.6-12.0); NRBC # 0.04 10*3/uL; Platelet Count 410 T/CUMM (130-400); Red Blood Count 4.19 MC/CUMM (3.8-5.5); Red Cell Distribution Width 23.1 % (9.3-17.3); White Blood Count 20.5 T/CUMM (4-12)
[2020-01-23] MEDS ORDERED: LEVOFLOXACIN INJ 750 MG in PREMIX 1 EACH IV STA (16:53)
[2020-01-23 17:03] LABS: Albumin 3.4 G/DL (3.4-5.0); Bilirubin,Total 1.1 MG/DL (0.2-1.0); Calcium 8.6 MG/DL (8.5-10.1); Osmolality,Calculated 267.1 MOS/KG (273-304); Total Protein 8.3 G/DL (6.4-8.3)
[2020-01-23] MEDS ORDERED: FUROSEMIDE 100 MG/10 ML VIAL IV STA (17:27)
[2020-01-23 17:29] LABS: Anisocytosis 4+; Hypochromasia 4+; Lymphocytes 5 % (20-55); Macrocytosis 2+; Microcytosis Slight; Segmented Neutrophils 91 % (50-85); Total Cells Counted 100
[2020-01-23 17:32] LABS: Stomatocytes 2+
[2020-01-23 17:56] LABS: ABG Base Excess 6.2 MMOL/L (-2.5-2.5); ABG HCO3 31.8 MMOL/L (20-26); ABG Oxygen Saturation 92.8 % (95-100); ABG PCO2 52.8 MM HG (35-48); ABG PH 7.398 (7.35-7.45); ABG PO2 70.9 MM HG (80-95); ABG TCO2 33.4 MMOL/L (23-27)
[2020-01-23] MEDS ORDERED: ACETAMINOPHEN 500 MG TABLET PO STA (18:06)
[2020-01-23 18:14] LABS: Ferritin 17.8 ng/ml (8-252)
[2020-01-23] MEDS ORDERED: methylPREDNISolone SOD SUC 40 MG/1 ML VIAL ONE (18:55)
[2020-01-23] MEDS ORDERED: DEXTROSE 50% 25 GM/50 ML VIAL IV PRN (18:57)
[2020-01-23] MEDS ORDERED: ONDANSETRON 4 MG/2 ML VIAL IV PRN (18:57)
[2020-01-23] MEDS ORDERED: ACETAMINOPHEN 325 MG TABLET PO PRN (18:57)
[2020-01-23] MEDS ORDERED: guaiFENesin/DM ER 600-30 MG TABLET PO PRN (18:57)
[2020-01-23] MEDS ORDERED: GLUCAGON 1 MG VIAL IM PRN (18:57)
[2020-01-23] MEDS ORDERED: hydrALAZINE 20 MG/1 ML VIAL IV PRN (19:01)
[2020-01-23] MEDS ORDERED: methylPREDNISolone SOD SUC 40 MG/1 ML VIAL IV STA (19:07)
[2020-01-23] MEDS: ALBUTEROL/IPRATROPIUM 3 ML NEB RESP TX SCH (19:33)
[2020-01-23] MEDS: ENOXAPARIN 40 MG/0.4 ML SYRINGE SUBCUT SCH (21:35)
[2020-01-24] MEDS: methylPREDNISolone SOD SUC 40 MG/1 ML VIAL IV SCH ×3 (02:07→20:43)
[2020-01-24] MEDS: ALBUTEROL/IPRATROPIUM 3 ML NEB RESP TX SCH ×4 (02:10→20:25)
[2020-01-24 06:21] LABS: Albumin 3.1 G/DL (3.4-5.0); Bilirubin,Total 0.8 MG/DL (0.2-1.0); Calcium 9.1 MG/DL (8.5-10.1); Total Protein 8.9 G/DL (6.4-8.3)
[2020-01-24 06:30] LABS: Basophils % 0.2 % (0.0-0.8); Hematocrit 28.5 VOL% (35.7-47.0); Immature Granulocytes Absolute 0.25 #; Mean Corpuscular Volume 68.2 FL (87-102); Mean Platelet Volume 8.9 FL (9.6-12.0); Monocytes % 1.2 % (1.7-12.7); NRBC # 0.04 10*3/uL; Neutrophils % 93.6 % (38.7-73.9); Platelet Count 406 T/CUMM (130-400); Red Blood Count 4.18 MC/CUMM (3.8-5.5); Red Cell Distribution Width 22.7 % (9.3-17.3); White Blood Count 23.8 T/CUMM (4-12)
[2020-01-24 06:32] LABS: Hemoglobin 7.7 GM/DL (12.0-16.0)
[2020-01-24 06:37] LABS: Band Neutrophils 3 % (0-10); Hypochromasia 1+; Lymphocytes 2 % (20-55); Microcytosis 2+; Platelet Estimate Increased; Segmented Neutrophils 95 % (50-85); Target Cells Few; Total Cells Counted 100
[2020-01-24 11:27] LABS: ABG Base Excess 6.4 MMOL/L (-2.5-2.5); ABG HCO3 30.2 MMOL/L (20-26); ABG Oxygen Saturation 94.7 % (95-100); ABG PCO2 68.5 MM HG (35-48); ABG PH 7.306 (7.35-7.45); ABG PO2 82.2 MM HG (80-95); ABG TCO2 32.3 MMOL/L (23-27)
[2020-01-24] MEDS: amLODIPine 10 MG TABLET PO SCH (13:22)
[2020-01-24] MEDS: LEVOFLOXACIN INJ 750 MG in PREMIX 1 EACH IV SCH (20:28)
[2020-01-24] MEDS: ENOXAPARIN 40 MG/0.4 ML SYRINGE SUBCUT SCH (20:43)
[2020-01-25] MEDS: ALBUTEROL/IPRATROPIUM 3 ML NEB RESP TX SCH ×4 (01:30→19:50)
[2020-01-25] MEDS: methylPREDNISolone SOD SUC 40 MG/1 ML VIAL IV SCH ×4 (03:47→23:50)
[2020-01-25 09:21] LABS: ABG Base Excess 8.3 MMOL/L (-2.5-2.5); ABG HCO3 35.3 MMOL/L (20-26); ABG Oxygen Saturation 94.5 % (95-100); ABG PCO2 67.3 MM HG (35-48); ABG PH 7.338 (7.35-7.45); ABG PO2 79.9 MM HG (80-95); ABG TCO2 37.4 MMOL/L (23-27)
[2020-01-25] MEDS: amLODIPine 10 MG TABLET PO SCH (10:56)
[2020-01-25] MEDS: LEVOFLOXACIN INJ 750 MG in PREMIX 1 EACH IV SCH (18:40)
[2020-01-25] MEDS: ENOXAPARIN 40 MG/0.4 ML SYRINGE SUBCUT SCH (20:10)
[2020-01-25] MEDS ORDERED: traZODone 50 MG TABLET PO PRN (20:18)
[2020-01-26] MEDS: ALBUTEROL/IPRATROPIUM 3 ML NEB RESP TX SCH ×4 (00:14→19:23)
[2020-01-26] MEDS: methylPREDNISolone SOD SUC 40 MG/1 ML VIAL IV SCH ×3 (06:00→22:02)
[2020-01-26 06:04] LABS: Calcium 8.9 MG/DL (8.5-10.1); Osmolality,Calculated 281.4 MOS/KG (273-304)
[2020-01-26 06:17] LABS: Basophils % 0.1 % (0.0-0.8); Hematocrit 27.2 VOL% (35.7-47.0); Immature Granulocytes % 1.1 %; Lymphocytes # 0.8 10*3/uL (1.4-4.0); Lymphocytes % 4.6 % (21.3-54.2); Mean Corpuscular HGB Conc 26.5 GM/DL (32-36); Mean Corpuscular Volume 68.5 FL (87-102); Mean Platelet Volume 8.9 FL (9.6-12.0); Monocytes % 2.9 % (1.7-12.7); NRBC # 0.12 10*3/uL; Neutrophils % 91.3 % (38.7-73.9); Platelet Count 410 T/CUMM (130-400); Red Blood Count 3.97 MC/CUMM (3.8-5.5); Red Cell Distribution Width 22.1 % (9.3-17.3); White Blood Count 17.8 T/CUMM (4-12)
[2020-01-26 06:19] LABS: Hemoglobin 7.2 GM/DL (12.0-16.0)
[2020-01-26 06:33] LABS: Hypochromasia 2+; Lymphocytes 6 % (20-55); Microcytosis 1+; Platelet Estimate Adequate; Segmented Neutrophils 92 % (50-85); Total Cells Counted 100
[2020-01-26] MEDS: amLODIPine 10 MG TABLET PO SCH (08:59)
[2020-01-26] MEDS ORDERED: VANCOMYCIN INJ 1,000 MG in SODIUM CHLORIDE 0.9% 250 ML IV ONE ×2 (09:00→12:30)
[2020-01-26 10:13] LABS: ABG Base Excess 7.4 MMOL/L (-2.5-2.5); ABG HCO3 31.2 MMOL/L (20-26); ABG Oxygen Saturation 95.9 % (95-100); ABG PCO2 67.8 MM HG (35-48); ABG PH 7.321 (7.35-7.45); ABG PO2 86.5 MM HG (80-95); ABG TCO2 33.2 MMOL/L (23-27)
[2020-01-26] MEDS: INSULIN LISPRO 100 UNIT/ML SUBCUT SCH ×3 (12:21→22:03)
[2020-01-26] MEDS: LEVOFLOXACIN INJ 750 MG in PREMIX 1 EACH IV SCH (17:21)
[2020-01-26] MEDS: FUROSEMIDE 40 MG/4 ML VIAL IV SCH (17:23)
[2020-01-26] MEDS: ENOXAPARIN 40 MG/0.4 ML SYRINGE SUBCUT SCH (22:04)
[2020-01-27] MEDS: ALBUTEROL/IPRATROPIUM 3 ML NEB RESP TX SCH ×4 (00:13→19:59)
[2020-01-27] MEDS ORDERED: VANCOMYCIN INJ 2,000 MG in SODIUM CHLORIDE 0.9% 500 ML IV SCH (01:00)
[2020-01-27] MEDS: methylPREDNISolone SOD SUC 40 MG/1 ML VIAL IV SCH ×2 (06:00→17:11)
[2020-01-27 07:28] LABS: Calcium 8.7 MG/DL (8.5-10.1); Osmolality,Calculated 281.2 MOS/KG (273-304)
[2020-01-27 07:41] LABS: Basophils % 0.1 % (0.0-0.8); Hematocrit 29.6 VOL% (35.7-47.0); Immature Granulocytes % 1.5 %; Immature Granulocytes Absolute 0.21 #; Lymphocytes # 0.9 10*3/uL (1.4-4.0); Lymphocytes % 6.2 % (21.3-54.2); Mean Corpuscular HGB Conc 26.7 GM/DL (32-36); Mean Corpuscular Volume 69.2 FL (87-102); Mean Platelet Volume 8.9 FL (9.6-12.0); Monocytes % 5.8 % (1.7-12.7); NRBC # 0.14 10*3/uL; Neutrophils % 86.4 % (38.7-73.9); Platelet Count 452 T/CUMM (130-400); Red Blood Count 4.28 MC/CUMM (3.8-5.5); Red Cell Distribution Width 22.3 % (9.3-17.3); White Blood Count 14.1 T/CUMM (4-12)
[2020-01-27 07:52] LABS: Hemoglobin 7.9 GM/DL (12.0-16.0); Hypochromasia 2+; Microcytosis 1+; Platelet Estimate Adequate
[2020-01-27] MEDS: amLODIPine 10 MG TABLET PO SCH (08:59)
[2020-01-27] MEDS: THEOPHYLLINE ER (24 HR) 400 MG CAPSULE PO SCH (08:59)
[2020-01-27] MEDS: FUROSEMIDE 40 MG/4 ML VIAL IV SCH ×2 (09:00→17:10)
[2020-01-27] MEDS: INSULIN GLARGINE 100 UNIT/ML SUBCUT SCH (09:01)
[2020-01-27] MEDS: INSULIN LISPRO 100 UNIT/ML SUBCUT SCH ×4 (09:02→20:11)
[2020-01-27] MEDS: LEVOFLOXACIN INJ 750 MG in PREMIX 1 EACH IV SCH (17:10)
[2020-01-27] MEDS: ENOXAPARIN 40 MG/0.4 ML SYRINGE SUBCUT SCH (20:12)
[2020-01-28] MEDS: ALBUTEROL/IPRATROPIUM 3 ML NEB RESP TX SCH ×2 (00:04→06:56)
[2020-01-28] MEDS: methylPREDNISolone SOD SUC 40 MG/1 ML VIAL IV SCH (05:14)
[2020-01-28 05:42] LABS: Calcium 8.6 MG/DL (8.5-10.1); Osmolality,Calculated 274.2 MOS/KG (273-304)
[2020-01-28 05:45] LABS: Basophils % 0.1 % (0.0-0.8); Hematocrit 30.4 VOL% (35.7-47.0); Immature Granulocytes % 1.2 %; Immature Granulocytes Absolute 0.18 #; Lymphocytes # 1.7 10*3/uL (1.4-4.0); Lymphocytes % 11.3 % (21.3-54.2); Mean Corpuscular HGB Conc 27.3 GM/DL (32-36); Mean Corpuscular Volume 67.3 FL (87-102); Mean Platelet Volume 8.7 FL (9.6-12.0); Monocytes % 8.1 % (1.7-12.7); NRBC # 0.09 10*3/uL; Neutrophils % 79.3 % (38.7-73.9); Platelet Count 463 T/CUMM (130-400); Red Blood Count 4.52 MC/CUMM (3.8-5.5); Red Cell Distribution Width 21.9 % (9.3-17.3); White Blood Count 14.8 T/CUMM (4-12)
[2020-01-28 05:46] LABS: Hemoglobin 8.3 GM/DL (12.0-16.0)
[2020-01-28 05:51] LABS: Hypochromasia 2+; Microcytosis 1+; Platelet Estimate Adequate
[2020-01-28] MEDS: THEOPHYLLINE ER (24 HR) 400 MG CAPSULE PO SCH (09:29)
[2020-01-28] MEDS: amLODIPine 10 MG TABLET PO SCH (09:29)
[2020-01-28] MEDS: FUROSEMIDE 40 MG/4 ML VIAL IV SCH (09:30)
[2020-01-28] MEDS: INSULIN LISPRO 100 UNIT/ML SUBCUT SCH ×2 (09:30→12:55)
[2020-01-28] MEDS: INSULIN GLARGINE 100 UNIT/ML SUBCUT SCH (09:31)
[2020-01-28 12:04] VITALS: BP 147/78
== END 2020-01-28 14:05 | disposition home or self-care (01) | DRG 193 ==
LOC: EDUNIT# → EDBD → N.ED 15:52 → N.EDINP 18:57 → SUATTDRO 18:57 → N.3E 19:48
PROVIDERS: ADMIT Emergency Medicine; ATTEND Family Medicine

== ENCOUNTER 2020-03-23 12:31 | Inpatient (IN) ==
[2020-03-23] MEDS ORDERED: SODIUM CHLORIDE 0.9% 1,000 ML IV STA (13:56)
[2020-03-23 15:07] LABS: Basophils % 0.3 % (0.0-0.8); Eosinophils % 0.2 % (0.00-10.9); Hematocrit 36.5 VOL% (35.7-47.0); Hemoglobin 9.5 GM/DL (12.0-16.0); Immature Granulocytes % 0.3 %; Immature Granulocytes Absolute 0.02 #; Lymphocytes # 1.4 10*3/uL (1.4-4.0); Lymphocytes % 24.4 % (21.3-54.2); Mean Corpuscular Volume 69.1 FL (87-102); Monocytes % 8.3 % (1.7-12.7); NRBC # 0.02 10*3/uL; Neutrophils % 66.5 % (38.7-73.9); Platelet Count 361 T/CUMM (130-400); Red Blood Count 5.28 MC/CUMM (3.8-5.5); Red Cell Distribution Width 23.9 % (9.3-17.3); White Blood Count 5.8 T/CUMM (4-12)
[2020-03-23 15:15] LABS: Alanine Aminotransferase 11 U/L (13-56); Alkaline Phosphatase 43 U/L (45-117); Aspartate Amino Transferase 15 U/L (0-37); Bilirubin,Total < 0.39 MG/DL (0.2-1.0); Blood Urea Nitrogen 7 MG/DL (7-18); Calcium 8.5 MG/DL (8.5-10.1); Carbon Dioxide 28 MMOL/L (21-32); Estimated Glom Filtration Rate 190 ML/MIN; Ferritin 37.3 ng/ml (8-252); Glucose 88 MG/DL (74-106); Osmolality,Calculated 264.2 MOS/KG (273-304); Potassium 4.1 MMOL/L (3.5-5.1); Sodium 134 MMOL/L (136-145); Total Protein 8.1 G/DL (6.4-8.3); Troponin I 0.016 NG/ML (0.00-0.045)
[2020-03-23] MEDS ORDERED: ONDANSETRON 4 MG/2 ML VIAL IV PRN (16:24)
[2020-03-23] MEDS ORDERED: GLUCAGON 1 MG VIAL IM PRN (16:24)
[2020-03-23] MEDS ORDERED: DEXTROSE 50% 25 GM/50 ML VIAL IV PRN (16:24)
[2020-03-23 17:02] LABS: Bilirubin,Urine Negative (Negative); Blood, Urine Negative (Negative); Glucose,Urine (UA) Negative (Negative); Ketones,Urine Negative (Negative); Mucus,Urine Many /LPF (Occasional); Nitrite,Urine Negative (Negative); Protein,Urine 30 MG/DL; RBC,Urine 2 /HPF (0-4); Squamous Epithelial Cell,Urine Occasional /HPF (0-10); Urine Appearance CLEAR (Clear); Urine Color Amber (Yellow); Urine Specific Gravity 1.026 (1.001-1.035); WBC,Urine 2 /HPF (0-6)
[2020-03-23] MEDS: ENOXAPARIN 40 MG/0.4 ML SYRINGE SUBCUT SCH (18:42)
[2020-03-23 18:43] LABS: INR 1.1; PT Patient Result 11.5 SECS (9.8-11.9)
[2020-03-23 20:43] LABS: ABG Base Excess 4.7 MMOL/L (-2.5-2.5); ABG HCO3 28.6 MMOL/L (20-26); ABG Oxygen Saturation 95.8 % (95-100); ABG PCO2 49.9 MM HG (35-48); ABG PH 7.393 (7.35-7.45); ABG PO2 83.6 MM HG (80-95); ABG TCO2 28.2 MMOL/L (23-27); Allen Test Positive
[2020-03-23] MEDS ORDERED: ALUMINUM/MAGNES/SIMETH MAX STR 30 ML UDCUP PO PRN (20:57)
[2020-03-23] MEDS: ACETAMINOPHEN 325 MG TABLET PO PRN (21:00)
[2020-03-23] MEDS: ASCORBIC ACID 500 MG TABLET PO SCH (21:00)
[2020-03-23] MEDS: cefTRIAXone 1,000 MG in SYRINGE 1 EACH IV SCH (21:00)
[2020-03-23] MEDS: MELATONIN 3 MG TABLET PO PRN (21:00)
[2020-03-23] MEDS: AZITHROMYCIN INJ 500 MG in SODIUM CHLORIDE 0.9% 250 ML IV SCH (21:04)
[2020-03-24 06:16] LABS: Calcium 8.5 MG/DL (8.5-10.1); Osmolality,Calculated 268.1 MOS/KG (273-304); Potassium 4.5 MMOL/L (3.5-5.1); Risk Ratio 2.64; Thyroid Stimulating Hormone 1.58 uIU/ml (0.358-3.74); VLDL CHOLESTEROL 12.8 MG/DL
[2020-03-24 06:48] LABS: Basophils % 0.4 % (0.0-0.8); Eosinophils % 0.4 % (0.00-10.9); Hematocrit 35.2 VOL% (35.7-47.0); Hemoglobin 8.8 GM/DL (12.0-16.0); Immature Granulocytes % 0.4 %; Immature Granulocytes Absolute 0.02 #; Lymphocytes # 1.7 10*3/uL (1.4-4.0); Lymphocytes % 34.4 % (21.3-54.2); Mean Corpuscular Volume 72.4 FL (87-102); Monocytes % 9.4 % (1.7-12.7); Platelet Count 357 T/CUMM (130-400); Red Blood Count 4.86 MC/CUMM (3.8-5.5); Red Cell Distribution Width 23.9 % (9.3-17.3)
[2020-03-24] MEDS ORDERED: REMDESIVIR 200 MG in SODIUM CHLORIDE 0.9% 210 ML IV ONE (09:00)
[2020-03-24] MEDS: ZINC GLUCONATE 50 MG TABLET PO SCH (09:13)
[2020-03-24] MEDS: PANTOPRAZOLE 40 MG TABLET PO SCH (09:14)
[2020-03-24] MEDS: CHOLECALCIFEROL 1,000 UNIT TABLET PO SCH (09:14)
[2020-03-24] MEDS: ASCORBIC ACID 500 MG TABLET PO SCH ×2 (09:14→21:31)
[2020-03-24] MEDS: CETIRIZINE 10 MG TABLET PO SCH (09:14)
[2020-03-24] MEDS: DEXAMETHASONE 4 MG/1 ML VIAL IV SCH (09:14)
[2020-03-24] MEDS ORDERED: SODIUM CHLORIDE 0.9% 1,000 ML IV PRN (13:00)
[2020-03-24] MEDS: ENOXAPARIN 40 MG/0.4 ML SYRINGE SUBCUT SCH (16:11)
[2020-03-24] MEDS: ALBUTEROL INHALER 18 GM INH SCH ×2 (16:11→20:00)
[2020-03-24] MEDS: ACETAMINOPHEN 325 MG TABLET PO PRN (16:12)
[2020-03-24] MEDS: cefTRIAXone 1,000 MG in SYRINGE 1 EACH IV SCH (21:31)
[2020-03-24] MEDS: AZITHROMYCIN INJ 500 MG in SODIUM CHLORIDE 0.9% 250 ML IV SCH (21:32)
[2020-03-25] MEDS: ALBUTEROL INHALER 18 GM INH SCH ×4 (01:00→18:23)
[2020-03-25 06:25] LABS: Calcium 8.8 MG/DL (8.5-10.1); Osmolality,Calculated 270.2 MOS/KG (273-304); Potassium 4.5 MMOL/L (3.5-5.1)
[2020-03-25 06:26] LABS: Ferritin 46.5 ng/ml (8-252)
[2020-03-25 06:44] LABS: Hematocrit 33.8 VOL% (35.7-47.0); Hemoglobin 8.4 GM/DL (12.0-16.0); Immature Granulocytes % 0.3 %; Immature Granulocytes Absolute 0.01 #; Lymphocytes # 1.2 10*3/uL (1.4-4.0); Lymphocytes % 34.1 % (21.3-54.2); Mean Corpuscular HGB Conc 24.9 GM/DL (32-36); Mean Corpuscular Volume 72.4 FL (87-102); Mean Platelet Volume 8.6 FL (9.6-12.0); Monocytes % 11.1 % (1.7-12.7); Neutrophils % 54.5 % (38.7-73.9); Platelet Count 359 T/CUMM (130-400); Red Blood Count 4.67 MC/CUMM (3.8-5.5); Red Cell Distribution Width 23.7 % (9.3-17.3); White Blood Count 3.5 T/CUMM (4-12)
[2020-03-25 06:51] LABS: Anisocytosis 1+; Atypical Lymphocytes Few; Band Neutrophils 16 % (0-10); Hypochromasia 2+; Lymphocytes 30 % (20-55); Platelet Estimate Normal; Segmented Neutrophils 38 % (50-85); Total Cells Counted 100
[2020-03-25] MEDS: CETIRIZINE 10 MG TABLET PO SCH (08:23)
[2020-03-25] MEDS: ZINC GLUCONATE 50 MG TABLET PO SCH (08:23)
[2020-03-25] MEDS: AZITHROMYCIN 250 MG TABLET PO SCH (08:23)
[2020-03-25] MEDS: PANTOPRAZOLE 40 MG TABLET PO SCH (08:23)
[2020-03-25] MEDS: ASCORBIC ACID 500 MG TABLET PO SCH ×2 (08:23→21:36)
[2020-03-25] MEDS: CHOLECALCIFEROL 1,000 UNIT TABLET PO SCH (08:23)
[2020-03-25] MEDS: DEXAMETHASONE 4 MG/1 ML VIAL IV SCH (08:24)
[2020-03-25] MEDS: REMDESIVIR 100 MG in SODIUM CHLORIDE 0.9% 100 ML IV SCH (09:36)
[2020-03-25] MEDS: ENOXAPARIN 40 MG/0.4 ML SYRINGE SUBCUT SCH (18:22)
[2020-03-25] MEDS: cefTRIAXone 1,000 MG in SYRINGE 1 EACH IV SCH (21:36)
[2020-03-25] MEDS: ACETAMINOPHEN 325 MG TABLET PO PRN (21:36)
[2020-03-25] MEDS: MELATONIN 3 MG TABLET PO PRN (21:37)
[2020-03-26] MEDS: ALBUTEROL INHALER 18 GM INH SCH ×4 (00:34→18:34)
[2020-03-26 06:39] LABS: Calcium 8.9 MG/DL (8.5-10.1); Osmolality,Calculated 276.7 MOS/KG (273-304); Potassium 4.5 MMOL/L (3.5-5.1)
[2020-03-26 06:41] LABS: Ferritin 45.8 ng/ml (8-252)
[2020-03-26 06:49] LABS: Basophils % 0.2 % (0.0-0.8); Hematocrit 33.1 VOL% (35.7-47.0); Hemoglobin 8.3 GM/DL (12.0-16.0); Immature Granulocytes % 0.5 %; Immature Granulocytes Absolute 0.02 #; Lymphocytes # 1.2 10*3/uL (1.4-4.0); Lymphocytes % 28.7 % (21.3-54.2); Mean Corpuscular HGB Conc 25.1 GM/DL (32-36); Mean Corpuscular Volume 71.5 FL (87-102); Mean Platelet Volume 9.1 FL (9.6-12.0); Monocytes % 10.2 % (1.7-12.7); NRBC # 0.03 10*3/uL; Neutrophils % 60.4 % (38.7-73.9); Platelet Count 389 T/CUMM (130-400); Red Blood Count 4.63 MC/CUMM (3.8-5.5); Red Cell Distribution Width 23.4 % (9.3-17.3); White Blood Count 4.3 T/CUMM (4-12)
[2020-03-26] MEDS: CHOLECALCIFEROL 1,000 UNIT TABLET PO SCH (08:48)
[2020-03-26] MEDS: ZINC GLUCONATE 50 MG TABLET PO SCH (08:48)
[2020-03-26] MEDS: PANTOPRAZOLE 40 MG TABLET PO SCH (08:49)
[2020-03-26] MEDS: DEXAMETHASONE 4 MG/1 ML VIAL IV SCH (08:49)
[2020-03-26] MEDS: REMDESIVIR 100 MG in SODIUM CHLORIDE 0.9% 100 ML IV SCH (08:49)
[2020-03-26] MEDS: AZITHROMYCIN 250 MG TABLET PO SCH (08:49)
[2020-03-26] MEDS: CETIRIZINE 10 MG TABLET PO SCH (08:49)
[2020-03-26] MEDS: ASCORBIC ACID 500 MG TABLET PO SCH ×2 (08:49→21:02)
[2020-03-26] MEDS ORDERED: FLUCONAZOLE 150 MG TABLET PO ONE (10:45)
[2020-03-26] MEDS: ENOXAPARIN 40 MG/0.4 ML SYRINGE SUBCUT SCH (17:17)
[2020-03-26] MEDS: cefTRIAXone 1,000 MG in SYRINGE 1 EACH IV SCH (21:01)
[2020-03-26] MEDS: SERTRALINE 25 MG TABLET PO SCH (21:02)
[2020-03-27] MEDS: ALBUTEROL INHALER 18 GM INH SCH ×4 (00:11→18:00)
[2020-03-27 05:36] LABS: Blood Urea Nitrogen 13 MG/DL (7-18); Calcium 8.6 MG/DL (8.5-10.1); Carbon Dioxide 29 MMOL/L (21-32); Estimated Glom Filtration Rate 187 ML/MIN; Ferritin 38.3 ng/ml (8-252); Glucose 253 MG/DL (74-106); Osmolality,Calculated 276.2 MOS/KG (273-304); Sodium 134 MMOL/L (136-145)
[2020-03-27 06:31] LABS: Hematocrit 32.2 VOL% (35.7-47.0); Hemoglobin 8.3 GM/DL (12.0-16.0); Immature Granulocytes % 0.3 %; Immature Granulocytes Absolute 0.02 #; Lymphocytes # 1.5 10*3/uL (1.4-4.0); Lymphocytes % 25.3 % (21.3-54.2); Mean Corpuscular HGB Conc 25.8 GM/DL (32-36); Mean Corpuscular Volume 71.4 FL (87-102); Mean Platelet Volume 9.2 FL (9.6-12.0); Monocytes % 10.2 % (1.7-12.7); NRBC # 0.03 10*3/uL; Neutrophils % 64.2 % (38.7-73.9); Platelet Count 414 T/CUMM (130-400); Red Blood Count 4.51 MC/CUMM (3.8-5.5); Red Cell Distribution Width 23.8 % (9.3-17.3); White Blood Count 5.9 T/CUMM (4-12)
[2020-03-27 07:37] LABS: Band Neutrophils 9 % (0-10); Lymphocytes 27 % (20-55); Nucleated Red Blood Cells 2 (0-5); Segmented Neutrophils 54 % (50-85); Total Cells Counted 100
[2020-03-27 07:38] LABS: Anisocytosis 2+; Hypochromasia 1+; Macrocytosis 1+; Target Cells Few
[2020-03-27 07:39] LABS: Giant Platelets Few
[2020-03-27] MEDS ORDERED: DEXTROSE 50% 25 GM/50 ML VIAL IV PRN (08:36)
[2020-03-27] MEDS ORDERED: GLUCAGON 1 MG VIAL IM PRN (08:36)
[2020-03-27] MEDS: PANTOPRAZOLE 40 MG TABLET PO SCH (11:32)
[2020-03-27] MEDS: DEXAMETHASONE 4 MG/1 ML VIAL IV SCH (11:33)
[2020-03-27] MEDS: AZITHROMYCIN 250 MG TABLET PO SCH (11:33)
[2020-03-27] MEDS: ZINC GLUCONATE 50 MG TABLET PO SCH (11:34)
[2020-03-27] MEDS: ASCORBIC ACID 500 MG TABLET PO SCH ×2 (11:34→21:45)
[2020-03-27] MEDS: CHOLECALCIFEROL 1,000 UNIT TABLET PO SCH (11:34)
[2020-03-27] MEDS: amLODIPine 5 MG TABLET PO SCH (11:34)
[2020-03-27] MEDS: CETIRIZINE 10 MG TABLET PO SCH (11:35)
[2020-03-27] MEDS: REMDESIVIR 100 MG in SODIUM CHLORIDE 0.9% 100 ML IV SCH (11:35)
[2020-03-27] MEDS: INSULIN REGULAR 100 UNIT/ML SUBCUT SCH ×3 (16:09→21:45)
[2020-03-27] MEDS: ENOXAPARIN 40 MG/0.4 ML SYRINGE SUBCUT SCH (18:02)
[2020-03-27] MEDS: SERTRALINE 25 MG TABLET PO SCH (21:45)
[2020-03-27] MEDS: cefTRIAXone 1,000 MG in SYRINGE 1 EACH IV SCH (22:51)
[2020-03-28] MEDS: ALBUTEROL INHALER 18 GM INH SCH ×2 (01:55→06:15)
[2020-03-28 05:04] LABS: Blood Urea Nitrogen 12 MG/DL (7-18); Calcium 8.6 MG/DL (8.5-10.1); Carbon Dioxide 31 MMOL/L (21-32); Estimated Glom Filtration Rate 198 ML/MIN; Ferritin 30.1 ng/ml (8-252); Glucose 144 MG/DL (74-106); Sodium 136 MMOL/L (136-145)
[2020-03-28 05:32] LABS: Hematocrit 32.9 VOL% (35.7-47.0); Hemoglobin 8.4 GM/DL (12.0-16.0); Immature Granulocytes % 0.3 %; Immature Granulocytes Absolute 0.02 #; Lymphocytes # 1.8 10*3/uL (1.4-4.0); Lymphocytes % 26.4 % (21.3-54.2); Mean Corpuscular HGB Conc 25.5 GM/DL (32-36); Mean Corpuscular Volume 70.8 FL (87-102); Mean Platelet Volume 9.1 FL (9.6-12.0); Monocytes % 8.4 % (1.7-12.7); NRBC # 0.02 10*3/uL; Neutrophils % 64.9 % (38.7-73.9); Platelet Count 472 T/CUMM (130-400); Red Blood Count 4.65 MC/CUMM (3.8-5.5); Red Cell Distribution Width 23.8 % (9.3-17.3); White Blood Count 6.8 T/CUMM (4-12)
[2020-03-28 05:54] LABS: Hypochromasia 1+; Platelet Estimate Normal; Target Cells Few
[2020-03-28 05:55] LABS: Anisocytosis 2+; Stomatocytes Few
[2020-03-28] MEDS: INSULIN REGULAR 100 UNIT/ML SUBCUT SCH ×2 (09:05→11:18)
[2020-03-28] MEDS: CHOLECALCIFEROL 1,000 UNIT TABLET PO SCH (09:07)
[2020-03-28] MEDS: PANTOPRAZOLE 40 MG TABLET PO SCH (09:07)
[2020-03-28] MEDS: CETIRIZINE 10 MG TABLET PO SCH (09:07)
[2020-03-28] MEDS: ZINC GLUCONATE 50 MG TABLET PO SCH (09:07)
[2020-03-28] MEDS: AZITHROMYCIN 250 MG TABLET PO SCH (09:07)
[2020-03-28] MEDS: amLODIPine 5 MG TABLET PO SCH (09:07)
[2020-03-28] MEDS: DEXAMETHASONE 4 MG/1 ML VIAL IV SCH (09:07)
[2020-03-28] MEDS: ASCORBIC ACID 500 MG TABLET PO SCH (09:07)
[2020-03-28] MEDS: REMDESIVIR 100 MG in SODIUM CHLORIDE 0.9% 100 ML IV SCH (10:03)
[2020-03-28 11:51] VITALS: BP 151/87
== END 2020-03-28 14:04 | disposition home or self-care (01) | DRG 177 ==
LOC: EDUNIT# → EDBD → N.ED 12:31 → N.EDINP 16:24 → N.2E 17:26
PROVIDERS: ADMIT Internal Medicine; ATTEND Internal Medicine

== ENCOUNTER 2021-02-15 16:07 | Inpatient (IN) ==
[2021-02-15 18:27] LABS: Basophils % 0.4 % (0.0-0.8); Eosinophils # 0.1 10*3/uL (0.0-0.87); Hematocrit 33.5 VOL% (35.7-47.0); Hemoglobin 8.3 GM/DL (12.0-16.0); Immature Granulocytes % 0.9 %; Immature Granulocytes Absolute 0.08 #; Lymphocytes # 1.7 10*3/uL (1.4-4.0); Lymphocytes % 18.6 % (21.3-54.2); Mean Corpuscular HGB Conc 24.8 GM/DL (32-36); Mean Corpuscular Volume 72.5 FL (87-102); Mean Platelet Volume 8.7 FL (9.6-12.0); Monocytes % 5.5 % (1.7-12.7); NRBC # 0.12 10*3/uL; Neutrophils % 73.6 % (38.7-73.9); Platelet Count 436 T/CUMM (130-400); Red Blood Count 4.62 MC/CUMM (3.8-5.5); Red Cell Distribution Width 23.8 % (9.3-17.3); White Blood Count 9.2 T/CUMM (4-12)
[2021-02-15 18:29] LABS: Albumin 3.2 G/DL (3.4-5.0); Bilirubin,Total 0.5 MG/DL (0.20-1.00); Calcium 8.9 MG/DL (8.5-10.1); Osmolality,Calculated 275.7 MOS/KG (273-304); Potassium 3.7 MMOL/L (3.5-5.1); Total Protein 8.8 G/DL (6.4-8.2)
[2021-02-15 21:36] LABS: ABG Base Excess 5.7 MMOL/L (-2.5-2.5); ABG HCO3 29.4 MMOL/L (20-26); ABG Oxygen Saturation 89.6 % (95-100); ABG PCO2 49.9 MM HG (35-48); ABG PH 7.405 (7.35-7.45); ABG PO2 61.7 MM HG (80-95); ABG TCO2 29.1 MMOL/L (23-27)
[2021-02-15] MEDS ORDERED: DEXTROSE 50% 25 GM/50 ML SYRINGE IV PRN (22:46)
[2021-02-15] MEDS ORDERED: GLUCAGON 1 MG VIAL IM PRN (22:46)
[2021-02-15] MEDS ORDERED: ONDANSETRON 4 MG/2 ML VIAL IV PRN (22:53)
[2021-02-15] MEDS ORDERED: ACETAMINOPHEN 325 MG TABLET PO PRN (22:53)
[2021-02-15] MEDS ORDERED: POTASSIUM CHLORIDE 20 MEQ TABLET PO PRN (23:01)
[2021-02-16] MEDS: ALBUTEROL/IPRATROPIUM 3 ML NEB RESP TX SCH ×4 (02:00→19:22)
[2021-02-16] MEDS: cefTRIAXone 2,000 MG in SODIUM CHLORIDE 0.9% 100 ML IV SCH (02:15)
[2021-02-16 07:05] LABS: Basophils # 0.1 10*3/uL (0.0-0.2); Basophils % 0.5 % (0.0-0.8); Eosinophils # 0.2 10*3/uL (0.0-0.87); Eosinophils % 1.5 % (0.00-10.9); Hematocrit 31.9 VOL% (35.7-47.0); Immature Granulocytes % 1.3 %; Immature Granulocytes Absolute 0.14 #; Lymphocytes # 1.7 10*3/uL (1.4-4.0); Lymphocytes % 16.1 % (21.3-54.2); Mean Corpuscular HGB Conc 25.1 GM/DL (32-36); Mean Corpuscular Volume 73.3 FL (87-102); Monocytes % 6.2 % (1.7-12.7); NRBC # 0.11 10*3/uL; Neutrophils % 74.4 % (38.7-73.9); Platelet Count 431 T/CUMM (130-400); Red Blood Count 4.35 MC/CUMM (3.8-5.5); Red Cell Distribution Width 23.6 % (9.3-17.3); White Blood Count 10.5 T/CUMM (4-12)
[2021-02-16 07:07] LABS: Calcium 8.7 MG/DL (8.5-10.1); Osmolality,Calculated 274.8 MOS/KG (273-304); Potassium 4.1 MMOL/L (3.5-5.1); Thyroid Stimulating Hormone 1.54 uIU/ml (0.358-3.74)
[2021-02-16] MEDS: AZITHROMYCIN 250 MG TABLET PO SCH (08:52)
[2021-02-16] MEDS: ENALAPRIL 5 MG TABLET PO SCH (08:52)
[2021-02-16] MEDS: PANTOPRAZOLE 40 MG TABLET PO SCH (08:52)
[2021-02-16] MEDS: FUROSEMIDE 40 MG/4 ML VIAL IV SCH ×2 (08:52→17:02)
[2021-02-16] MEDS: ENOXAPARIN 40 MG/0.4 ML SYRINGE SUBCUT SCH (08:52)
[2021-02-16] MEDS: amLODIPine 10 MG TABLET PO SCH (08:52)
[2021-02-16] MEDS ORDERED: FERROUS SULFATE 325 MG TABLET PO SCH (09:00)
[2021-02-16 09:21] LABS: % Iron Saturation 4.3 % (18-50); Ferritin 15.9 ng/mL (8-252)
[2021-02-16 12:01] LABS: Basophils % 0.4 % (0.0-0.8); Eosinophils # 0.1 10*3/uL (0.0-0.87); Eosinophils % 1.2 % (0.00-10.9); Hematocrit 32.9 VOL% (35.7-47.0); Hemoglobin 8.1 GM/DL (12.0-16.0); Immature Granulocytes % 1.1 %; Immature Granulocytes Absolute 0.12 #; Lymphocytes # 1.5 10*3/uL (1.4-4.0); Lymphocytes % 14.7 % (21.3-54.2); Mean Corpuscular HGB Conc 24.6 GM/DL (32-36); Mean Corpuscular Volume 73.8 FL (87-102); Mean Platelet Volume 8.6 FL (9.6-12.0); Monocytes % 6.4 % (1.7-12.7); NRBC # 0.14 10*3/uL; Neutrophils % 76.2 % (38.7-73.9); Platelet Count 429 T/CUMM (130-400); Red Blood Count 4.46 MC/CUMM (3.8-5.5); Red Cell Distribution Width 23.4 % (9.3-17.3); White Blood Count 10.5 T/CUMM (4-12)
[2021-02-16 12:22] LABS: Vitamin B12 709 PG/ML (211-911)
[2021-02-16 12:33] LABS: Platelet Estimate Normal
[2021-02-16 12:34] LABS: Anisocytosis 1+; Hypochromia 2+; Macrocytosis Slight
[2021-02-16 12:39] LABS: Sedimentation Rate-Westergren 26 MM/HR (0-20)
[2021-02-16] MEDS ORDERED: FERRIC GLUCONATE COMPLEX 125 MG in SODIUM CHLORIDE 0.9% 100 ML IV ONE (13:00)
[2021-02-16] MEDS: FERROUS SULFATE 325 MG TABLET PO SCH (20:09)
[2021-02-17] MEDS: cefTRIAXone 2,000 MG in SODIUM CHLORIDE 0.9% 100 ML IV SCH ×2 (00:01→23:56)
[2021-02-17] MEDS: ALBUTEROL/IPRATROPIUM 3 ML NEB RESP TX SCH ×5 (00:05→20:10)
[2021-02-17 08:05] LABS: Hemoglobin A1 (Alkaline) 97.3 % (96.5-98.5); Hemoglobin A2 (Alkaline) 2.7 % (1.5-3.5)
[2021-02-17] MEDS: AZITHROMYCIN 250 MG TABLET PO SCH (08:55)
[2021-02-17] MEDS: ENOXAPARIN 40 MG/0.4 ML SYRINGE SUBCUT SCH ×2 (08:55→20:16)
[2021-02-17] MEDS: FERROUS SULFATE 325 MG TABLET PO SCH ×2 (08:55→20:16)
[2021-02-17] MEDS: ENALAPRIL 5 MG TABLET PO SCH (08:55)
[2021-02-17] MEDS: PANTOPRAZOLE 40 MG TABLET PO SCH (08:55)
[2021-02-17] MEDS: amLODIPine 10 MG TABLET PO SCH (08:55)
[2021-02-17] MEDS: FUROSEMIDE 40 MG/4 ML VIAL IV SCH ×2 (08:56→09:14)
[2021-02-17] MEDS: methylPREDNISolone SOD SUC 40 MG/1 ML VIAL IV SCH ×2 (13:44→21:53)
[2021-02-17] MEDS ORDERED: ALBUTEROL/IPRATROPIUM 3 ML NEB RESP TX ONE (23:05)
[2021-02-18 05:52] LABS: Potassium 5.1 MMOL/L (3.5-5.1)
[2021-02-18 06:12] LABS: Basophils % 0.2 % (0.0-0.8); Hematocrit 33.4 VOL% (35.7-47.0); Hemoglobin 8.2 GM/DL (12.0-16.0); Immature Granulocytes % 1.9 %; Immature Granulocytes Absolute 0.25 #; Lymphocytes # 0.8 10*3/uL (1.4-4.0); Lymphocytes % 6.2 % (21.3-54.2); Mean Corpuscular HGB Conc 24.6 GM/DL (32-36); Mean Corpuscular Volume 74.6 FL (87-102); Monocytes % 1.8 % (1.7-12.7); NRBC # 0.07 10*3/uL; Neutrophils % 89.9 % (38.7-73.9); Platelet Count 440 T/CUMM (130-400); Red Blood Count 4.48 MC/CUMM (3.8-5.5); Red Cell Distribution Width 24.1 % (9.3-17.3); White Blood Count 13.2 T/CUMM (4-12)
[2021-02-18 06:25] LABS: Hypochromia 2+; Polychromasia Slight
[2021-02-18 06:26] LABS: Anisocytosis 1+; Target Cells Few
[2021-02-18 06:27] LABS: Microcytosis 1+; Platelet Estimate Increased
[2021-02-18] MEDS: ALBUTEROL/IPRATROPIUM 3 ML NEB RESP TX SCH ×2 (07:18→13:29)
[2021-02-18] MEDS ORDERED: FUROSEMIDE 40 MG/4 ML VIAL IV SCH (09:00)
[2021-02-18] MEDS: AZITHROMYCIN 250 MG TABLET PO SCH (09:10)
[2021-02-18] MEDS: amLODIPine 10 MG TABLET PO SCH (09:10)
[2021-02-18] MEDS: methylPREDNISolone SOD SUC 40 MG/1 ML VIAL IV SCH (09:10)
[2021-02-18] MEDS: ENALAPRIL 5 MG TABLET PO SCH (09:11)
[2021-02-18] MEDS: ENOXAPARIN 40 MG/0.4 ML SYRINGE SUBCUT SCH (09:11)
[2021-02-18] MEDS: FERROUS SULFATE 325 MG TABLET PO SCH (09:11)
[2021-02-18] MEDS: PANTOPRAZOLE 40 MG TABLET PO SCH (09:11)
[2021-02-18 11:42] VITALS: BP 142/69
[2021-02-18] MEDS ORDERED: CEFUROXIME 500 MG TABLET PO SCH (17:00)
[2021-02-19] MEDS ORDERED: predniSONE 20 MG TABLET PO SCH (09:00)
== END 2021-02-18 13:58 | disposition home or self-care (01) | DRG 194 ==
LOC: N.ED 16:07 → N.EDINP 22:46 → N.3E 02-16 02:52
PROVIDERS: ADMIT Internal Medicine; ATTEND Internal Medicine

== ENCOUNTER 2021-03-19 14:54 | Inpatient (IN) ==
[2021-03-19 15:54] LABS: Basophils % 0.4 % (0.0-0.8); Eosinophils # 0.1 10*3/uL (0.0-0.87); Eosinophils % 0.9 % (0.00-10.9); Hematocrit 30.7 VOL% (35.7-47.0); Hemoglobin 7.9 GM/DL (12.0-16.0); Immature Granulocytes % 0.7 %; Immature Granulocytes Absolute 0.05 #; Lymphocytes # 1.3 10*3/uL (1.4-4.0); Lymphocytes % 18.9 % (21.3-54.2); Mean Corpuscular HGB Conc 25.7 GM/DL (32-36); Mean Corpuscular Volume 73.1 FL (87-102); Mean Platelet Volume 9.2 FL (9.6-12.0); Monocytes % 7.6 % (1.7-12.7); NRBC # 0.06 10*3/uL; Neutrophils % 71.5 % (38.7-73.9); Platelet Count 417 T/CUMM (130-400); Red Cell Distribution Width 23.8 % (9.3-17.3); White Blood Count 6.8 T/CUMM (4-12)
[2021-03-19 15:55] LABS: INR 1.2; PT Patient Result 13.3 SECS (10.5-12.0); Partial Thromboplastin Time 25.5 SECS (23.8-32.1)
[2021-03-19 16:13] LABS: Albumin 3.4 G/DL (3.4-5.0); Bilirubin,Total 2.2 MG/DL (0.20-1.00); Calcium 8.5 MG/DL (8.5-10.1); Osmolality,Calculated 276.4 MOS/KG (273-304); Potassium 4.2 MMOL/L (3.5-5.1)
[2021-03-19 16:54] LABS: Bacteria,Urine Occasional /HPF (Few); Bilirubin,Urine Negative (Negative); Blood, Urine Negative (Negative); Glucose,Urine (UA) Negative (Negative); Ketones,Urine Negative (Negative); Mucus,Urine Occasional /LPF (Occasional); Nitrite,Urine Negative (Negative); Protein,Urine 100 MG/DL; Squamous Epithelial Cell,Urine Moderate /HPF (0-10); Urine Appearance Slightly Hazy (Clear); Urine Color Yellow (Yellow); Urine Specific Gravity 1.018 (1.001-1.035)
[2021-03-19] MEDS ORDERED: ASPIRIN 325 MG TABLET PO STA (17:55)
[2021-03-19] MEDS ORDERED: cefTRIAXone 1,000 MG in SODIUM CHLORIDE 0.9% 100 ML IV STA (17:55)
[2021-03-19] MEDS ORDERED: AZITHROMYCIN INJ 500 MG in SODIUM CHLORIDE 0.9% 250 ML IV STA (17:55)
[2021-03-19] MEDS ORDERED: methylPREDNISolone SOD SUC 125 MG/2 ML VIAL IV STA (17:55)
[2021-03-19] MEDS ORDERED: ONDANSETRON 4 MG/2 ML VIAL IV ONE (17:55)
[2021-03-19] MEDS ORDERED: ENOXAPARIN 100 MG/ML SYRINGE SUBCUT STA (17:55)
[2021-03-19] MEDS ORDERED: FUROSEMIDE 40 MG/4 ML VIAL IV STA (17:55)
[2021-03-19] MEDS ORDERED: NITROGLYCERIN 2% OINT 1 INCH/GM PACK TOP STA (17:55)
[2021-03-19] MEDS ORDERED: ACETAMINOPHEN 325 MG TABLET PO PRN (18:26)
[2021-03-19] MEDS ORDERED: ALBUTEROL/IPRATROPIUM 3 ML NEB RESP TX PRN (18:26)
[2021-03-19] MEDS ORDERED: CALCIUM CARBONATE CHEW 500 MG TABLET PO PRN (18:26)
[2021-03-19] MEDS ORDERED: ONDANSETRON 4 MG/2 ML VIAL IV PRN (18:26)
[2021-03-19] MEDS ORDERED: hydrALAZINE 20 MG/1 ML VIAL IV PRN (18:33)
[2021-03-20 06:41] LABS: Calcium 8.4 MG/DL (8.5-10.1); Osmolality,Calculated 277.5 MOS/KG (273-304)
[2021-03-20 07:08] LABS: Basophils % 0.1 % (0.0-0.8); Hematocrit 32.9 VOL% (35.7-47.0); Hemoglobin 8.1 GM/DL (12.0-16.0); Immature Granulocytes % 1.4 %; Immature Granulocytes Absolute 0.13 #; Lymphocytes # 0.6 10*3/uL (1.4-4.0); Lymphocytes % 6.6 % (21.3-54.2); Mean Corpuscular HGB Conc 24.6 GM/DL (32-36); Mean Corpuscular Volume 76.5 FL (87-102); Mean Platelet Volume 9.1 FL (9.6-12.0); Monocytes % 0.9 % (1.7-12.7); NRBC # 0.05 10*3/uL; Platelet Count 427 T/CUMM (130-400); Red Cell Distribution Width 23.9 % (9.3-17.3); White Blood Count 9.1 T/CUMM (4-12)
[2021-03-20 07:13] LABS: Band Neutrophils 2 % (0-10); Hypochromia 1+; Lymphocytes 6 % (20-55); Microcytosis 1+; Platelet Estimate Adequate; Segmented Neutrophils 90 % (50-85); Total Cells Counted 100
[2021-03-20] MEDS ORDERED: ALBUTEROL 2.5 MG/3 ML NEB RESP TX PRN (08:13)
[2021-03-20] MEDS: FUROSEMIDE 40 MG/4 ML VIAL IV SCH ×2 (08:18→18:58)
[2021-03-20] MEDS: ENALAPRIL 20 MG TABLET PO SCH (10:52)
[2021-03-20] MEDS: FERROUS SULFATE 325 MG TABLET PO SCH ×2 (10:52→20:19)
[2021-03-20] MEDS: LEVOFLOXACIN INJ 750 MG/150 ML PREMIX IV SCH (10:54)
[2021-03-20] MEDS ORDERED: ENOXAPARIN 40 MG/0.4 ML SYRINGE SUBCUT SCH (18:00)
[2021-03-20] MEDS: RIVAROXABAN 15 MG TABLET PO SCH (18:58)
[2021-03-21] MEDS ORDERED: PANTOPRAZOLE 40 MG TABLET PO SCH (09:00)
[2021-03-21] MEDS: FERROUS SULFATE 325 MG TABLET PO SCH (09:05)
[2021-03-21] MEDS: ENALAPRIL 20 MG TABLET PO SCH (09:05)
[2021-03-21] MEDS: FUROSEMIDE 40 MG/4 ML VIAL IV SCH ×2 (09:06→17:35)
[2021-03-21] MEDS: RIVAROXABAN 15 MG TABLET PO SCH (09:07)
[2021-03-21 15:05] VITALS: BP 119/73
[2021-03-21] MEDS: LEVOFLOXACIN INJ 750 MG/150 ML PREMIX IV SCH (17:35)
== END 2021-03-21 16:37 | disposition home health service (06) | DRG 194 ==
LOC: N.ED 14:54 → N.EDINP 18:26 → N.3E 21:28
PROVIDERS: ADMIT Hospitalist; ATTEND Hospitalist

== ENCOUNTER 2021-04-03 09:32 | Observation (INO) ==
[2021-04-03 10:46] LABS: Albumin 3.1 G/DL (3.4-5.0); Bilirubin,Total 0.9 MG/DL (0.20-1.00); Calcium 9.2 MG/DL (8.5-10.1); Osmolality,Calculated 271.8 MOS/KG (273-304); Potassium 4.6 MMOL/L (3.5-5.1); Total Protein 8.3 G/DL (6.4-8.2)
[2021-04-03 10:48] LABS: Basophils % 0.3 % (0.0-0.8); Eosinophils # 0.1 10*3/uL (0.0-0.87); Eosinophils % 1.3 % (0.00-10.9); Hematocrit 31.5 VOL% (35.7-47.0); Immature Granulocytes % 0.5 %; Immature Granulocytes Absolute 0.04 #; Lymphocytes # 1.2 10*3/uL (1.4-4.0); Lymphocytes % 13.6 % (21.3-54.2); Mean Corpuscular HGB Conc 25.4 GM/DL (32-36); Mean Corpuscular Volume 74.8 FL (87-102); Monocytes % 6.6 % (1.7-12.7); NRBC # 0.04 10*3/uL; Neutrophils % 77.7 % (38.7-73.9); Platelet Count 393 T/CUMM (130-400); Red Blood Count 4.21 MC/CUMM (3.8-5.5); Red Cell Distribution Width 24.8 % (9.3-17.3); White Blood Count 8.6 T/CUMM (4-12)
[2021-04-03 10:58] LABS: Hypochromia 2+; Polychromasia Slight
[2021-04-03 10:59] LABS: Microcytosis 1+; Platelet Estimate Normal
[2021-04-03] MEDS ORDERED: FUROSEMIDE 40 MG/4 ML VIAL IV STA (11:06)
[2021-04-03] MEDS ORDERED: GLUCAGON 1 MG VIAL IM PRN (14:37)
[2021-04-03] MEDS ORDERED: MORPHINE 2 MG/1 ML SYRINGE IV PRN (14:37)
[2021-04-03] MEDS ORDERED: ONDANSETRON 4 MG/2 ML VIAL IV PRN (14:37)
[2021-04-03] MEDS ORDERED: DEXTROSE 10% 250 ML BAG IV PRN (14:37)
[2021-04-03] MEDS ORDERED: ACETAMINOPHEN 325 MG TABLET PO PRN (14:37)
[2021-04-03] MEDS ORDERED: DEXTROSE 50% 25 GM/50 ML VIAL IV PRN (14:56)
[2021-04-03] MEDS: INSULIN LISPRO 100 UNIT/ML SUBCUT SCH (16:27)
[2021-04-03] MEDS: LEVOFLOXACIN 500 MG TABLET PO SCH (16:30)
[2021-04-03] MEDS: ALBUTEROL/IPRATROPIUM 3 ML NEB RESP TX SCH (19:07)
[2021-04-03] MEDS: FERRIC GLUCONATE COMPLEX 125 MG in SODIUM CHLORIDE 0.9% 100 ML IV SCH (23:00)
[2021-04-03] MEDS: RIVAROXABAN 15 MG TABLET PO SCH (23:00)
[2021-04-04] MEDS: INSULIN LISPRO 100 UNIT/ML SUBCUT SCH ×2 (00:09→08:30)
[2021-04-04 05:00] LABS: Basophils % 0.5 % (0.0-0.8); Eosinophils # 0.2 10*3/uL (0.0-0.87); Eosinophils % 1.8 % (0.00-10.9); Hematocrit 28.7 VOL% (35.7-47.0); Hemoglobin 7.2 GM/DL (12.0-16.0); Immature Granulocytes % 0.7 %; Immature Granulocytes Absolute 0.06 #; Lymphocytes # 1.3 10*3/uL (1.4-4.0); Lymphocytes % 15.5 % (21.3-54.2); Mean Corpuscular HGB Conc 25.1 GM/DL (32-36); Mean Corpuscular Volume 76.3 FL (87-102); Mean Platelet Volume 9.1 FL (9.6-12.0); Monocytes % 7.2 % (1.7-12.7); NRBC # 0.02 10*3/uL; Neutrophils % 74.3 % (38.7-73.9); Platelet Count 349 T/CUMM (130-400); Red Blood Count 3.76 MC/CUMM (3.8-5.5); Red Cell Distribution Width 24.5 % (9.3-17.3); White Blood Count 8.5 T/CUMM (4-12)
[2021-04-04 05:08] LABS: Eosinophils 2 % (0-10); Hypochromia 1+; Lymphocytes 17 % (20-55); Microcytosis 1+; Platelet Estimate Adequate; Segmented Neutrophils 80 % (50-85); Total Cells Counted 100
[2021-04-04 05:19] LABS: Albumin 2.8 G/DL (3.4-5.0); Bilirubin,Total 0.7 MG/DL (0.20-1.00); Calcium 8.5 MG/DL (8.5-10.1); Osmolality,Calculated 276.5 MOS/KG (273-304); Potassium 3.5 MMOL/L (3.5-5.1); Risk Ratio 2.88; Total Protein 7.5 G/DL (6.4-8.2); VLDL Cholesterol 9.8 MG/DL
[2021-04-04] MEDS: ALBUTEROL/IPRATROPIUM 3 ML NEB RESP TX SCH ×2 (07:50)
[2021-04-04] MEDS ORDERED: PANTOPRAZOLE 40 MG TABLET PO SCH (09:00)
[2021-04-04] MEDS ORDERED: FUROSEMIDE 40 MG/4 ML VIAL IV SCH (09:00)
[2021-04-04] MEDS: RIVAROXABAN 15 MG TABLET PO SCH (09:35)
[2021-04-04] MEDS: LEVOFLOXACIN 500 MG TABLET PO SCH (09:35)
[2021-04-04] MEDS: FERRIC GLUCONATE COMPLEX 125 MG in SODIUM CHLORIDE 0.9% 100 ML IV SCH (09:42)
[2021-04-04 11:42] VITALS: BP 146/91
== END 2021-04-04 10:50 | disposition home or self-care (01) ==
LOC: N.EDINP 09:32 → N.ED 09:32 → SUATTDRO 14:37 → N.EDINP 04-04 12:00
PROVIDERS: ADMIT Internal Medicine; ATTEND Internal Medicine